=== PATIENT | female | born 1940 | race Caucasian/White ===

== ENCOUNTER 2017-03-31 15:48 | Inpatient (IN) | payer OTHER, MEDICAID ==
[~2017-03-31] VITALS: Ht 160 cm; Wt 68.0 kg
[~2017-03-31 15:48] MED LIST: CA/D1TAB7 PO; CLON1TAB4 PO; ESCI20TA PO; EZET10TA PO; FERR-57 PO; GLIM2TAB2 PO; HYDR-4100 PO; LEVO25TA7 PO; LOSA100T11 PO; MEGE400O4 PO; METO-290 PO; OMEP20CA10 PO; SIMV10TA2 PO; [UNRECOGNIZED DRUG - CODE] PO
[2017-03-31 15:50] VITALS: BP_SYST 156
[2017-03-31] MEDS ORDERED: MORPHINE 4 MG/ML INJ. SYRINGE IM ONE (16:30)
[2017-03-31] MEDS ORDERED: ONDANSETRON HCL 4 MG/2 ML VIAL IVP ONE (16:30)
[2017-03-31 16:37] LABS: BASOPHILS % (AUTO) 0.1 % (0.0-2.0); EOSINOPHILS % (AUTO) 0.5 % (0.0-4.0); HEMOGLOBIN 10.6 g/dL (12.0-16.0); LYMPHOCYTES # (AUTO) 0.7 K/uL (1.0-5.5); MEAN CORPUSCULAR HEMOGLOBIN 29 pg (27-31); MEAN CORPUSCULAR HGB CONC 33 % (32-36); MEAN CORPUSCULAR VOLUME 88 fL (79.0-98.0); MONOCYTES # (AUTO) 0.4 K/uL (0.0-1.0); MONOCYTES % (AUTO) 4.6 % (1.7-9.3); NEUTROPHILS % (AUTO) 85.8 % (40.0-70.0); PLATELET COUNT (AUTO) 238 K/uL (130-430); RED BLOOD CELL COUNT(AUTO) 3.63 MIL/uL (4.2-6.2); WHITE BLOOD COUNT (AUTO) 8.1 K/uL (4.8-10.8)
[2017-03-31 16:44] LABS: BILIRUBIN,URINE NEGATIVE (NEGATIVE); BLOOD, URINE 2+ (NEGATIVE); CLARITY/URINE SL HAZY (CLEAR); COLOR,URINE YELLOW (YELLOW); GLUCOSE,URINE NEGATIVE (NEGATIVE); KETONES,URINE NEGATIVE (NEGATIVE); LEUKOCYTE ESTERASE ,URINE TRACE (NEGATIVE); NITRITE, URINE NEGATIVE (NEGATIVE); PROTEIN URINE NEGATIVE (NEGATIVE); UROBILINOGEN,URINE 0.2 (0.2-1.0)
[2017-03-31] MEDS ORDERED: MORPHINE 4 MG/ML INJ. SYRINGE IVP ONE (16:45)
[2017-03-31 16:47] LABS: ANION GAP 4 (5-15); CALCIUM 8.7 mg/dL (8.4-11.0); CHLORIDE 95 mmol/L (98-107); CREATININE 0.91 mg/dL (0.55-1.30); GLUCOSE 214 mg/dL (70-99); POTASSIUM 4.5 mmol/L (3.5-5.1); SODIUM SERUM 127 mmol/L (136-145); UREA NITROGEN, BLOOD 16 mg/dL (8-21)
[2017-03-31 16:51] LABS: ALANINE AMINOTRANSFERASE 6 U/L (12-78); ASPARTATE AMINOTRANSFERASE 18 U/L (10-37); LIPASE 130 U/L (73-393); TOTAL BILIRUBIN 0.3 mg/dL (0.0-1.0); TOTAL PROTEIN, SERUM 7.5 g/dL (6.4-8.3)
[2017-03-31 16:55] LABS: BACTERIA,URINE MANY /HPF (None Seen); MUCUS,URINE None Seen /LPF (None Seen)
[2017-03-31] MEDS ORDERED: cefTRIAXone 1 GM IVPB PREMIX 50 ML IV ONE ×2 (17:15→21:30)
[2017-03-31] MEDS ORDERED: HYDROmorphone 1 MG INJ. 1 MG/ML AMPUL IVP ONE (17:30)
[2017-03-31] MEDS ORDERED: ONDANSETRON 4 MG ODT TAB PO ONE (18:30)
[2017-03-31] MEDS ORDERED: cloNIDine HCL 0.1 MG TABLET PO ONE (20:15)
[2017-03-31] MEDS ORDERED: NS 500 ML IV ONE (21:30)
[2017-03-31] MEDS ORDERED: MAGNESIUM CITRATE 300 ML ORAL SOLUTION PO ONE (21:30)
[2017-03-31] MEDS ORDERED: INSU100I24 SQ (22:08)
[2017-03-31 22:17] VITALS: BP_SYST 127
[2017-03-31] MEDS: KCL 20 mEq in D5/0.45NS 1000mL 1,000 ML IV SCH (23:26)
[2017-04-01] VITALS (7 sets, daily range): BP systolic 107–145
[2017-04-01] MEDS: HYDROcodone/ACETAMIN 10-325 MG TAB PO PRN ×4 (01:19→21:50)
[2017-04-01] MEDS ORDERED: [UNRECOGNIZED DRUG - OTHER] PO SCH (09:00)
[2017-04-01] MEDS ORDERED: GLUCOSE 15 GM GEL (in 37.5 GM TUBE) PO PRN ×2 (09:15)
[2017-04-01] MEDS ORDERED: DEXTROSE 50%-WATER 50 ML DISP.SYRIN IVP PRN ×2 (09:15)
[2017-04-01] MEDS: CEFEPIME 1 GM in D5W 50 ML IV SCH ×2 (10:41→22:19)
[2017-04-01] MEDS: CITALOPRAM HYDROBROMIDE 20 MG TABLET PO SCH (10:42)
[2017-04-01] MEDS: FERROUS SULFATE 325 MG TABLET.DR PO SCH ×2 (10:42→20:12)
[2017-04-01] MEDS: CARBIDOPA/LEVODOPA 25/100 MG TABLET PO SCH ×4 (10:42→23:18)
[2017-04-01] MEDS: LOSARTAN POTASSIUM 50 MG TABLET (COZAAR) PO SCH (10:43)
[2017-04-01] MEDS: clonazePAM 0.5 MG TABLET PO SCH ×2 (10:44→20:12)
[2017-04-01] MEDS: MEGESTROL ACETATE 400 MG/10 ML UDC PO SCH ×2 (10:44→20:12)
[2017-04-01] MEDS: OMEPRAZOLE 20 MG CAPSULE.DR (PriLOSEC) PO SCH ×2 (10:44→20:12)
[2017-04-01] MEDS: KCL 20 mEq in D5/0.45NS 1000mL 1,000 ML IV SCH ×2 (12:18→17:48)
[2017-04-01] MEDS: INSULIN REGULAR, HUMAN 100 UNITS/ML, 10 ML VIAL (novoLIN R) SUBCUT PRN ×2 (13:35→16:30)
[2017-04-01] MEDS: METOCLOPRAMIDE HCL 10 MG TABLET PO SCH ×2 (14:16→22:20)
[2017-04-01] MEDS ORDERED: ACETAMINOPHEN 500 MG TABLET PO ONE (19:15)
[2017-04-01] MEDS: EZETIMIBE 10 MG TABLET PO SCH (20:12)
[2017-04-01] MEDS: SIMVASTATIN 10 MG TABLET PO SCH (20:12)
[2017-04-01] MEDS: LUBIPROSTONE 8 MCG CAPSULE PO SCH (22:19)
[2017-04-02 03:42] VITALS: BP_SYST 156
[2017-04-02] MEDS: CARBIDOPA/LEVODOPA 25/100 MG TABLET PO SCH ×6 (03:49→22:58)
[2017-04-02] MEDS: ACETAMINOPHEN 500 MG TABLET PO PRN ×2 (04:04→10:39)
[2017-04-02] MEDS: METOCLOPRAMIDE HCL 10 MG TABLET PO SCH ×3 (06:57→21:41)
[2017-04-02] MEDS: GLIMEPIRIDE 2 MG TABLET PO SCH (06:57)
[2017-04-02] MEDS: LEVOTHYROXINE SODIUM 0.025 MG TABLET PO SCH (06:57)
[2017-04-02] MEDS: KCL 20 mEq in D5/0.45NS 1000mL 1,000 ML IV SCH (07:01)
[2017-04-02] MEDS: INSULIN REGULAR, HUMAN 100 UNITS/ML, 10 ML VIAL (novoLIN R) SUBCUT PRN ×4 (07:03→21:45)
[2017-04-02] MEDS: HYDROcodone/ACETAMIN 10-325 MG TAB PO PRN (07:10)
[2017-04-02 07:12] LABS: BASOPHILS % (AUTO) 0.3 % (0.0-2.0); EOSINOPHILS % (AUTO) 0.3 % (0.0-4.0); HEMATOCRIT 27.4 % (36-48); HEMOGLOBIN 9.1 g/dL (12.0-16.0); LYMPHOCYTES % (AUTO) 10.4 % (20.5-51.5); MEAN CORPUSCULAR HEMOGLOBIN 29 pg (27-31); MEAN CORPUSCULAR HGB CONC 33 % (32-36); MEAN CORPUSCULAR VOLUME 88 fL (79.0-98.0); MONOCYTES # (AUTO) 0.5 K/uL (0.0-1.0); MONOCYTES % (AUTO) 5.3 % (1.7-9.3); NEUTROPHILS # (AUTO) 7.7 K/uL (1.8-7.7); NEUTROPHILS % (AUTO) 83.7 % (40.0-70.0); PLATELET COUNT (AUTO) 162 K/uL (130-430); RED BLOOD CELL COUNT(AUTO) 3.11 MIL/uL (4.2-6.2); RED CELL DISTRIBUTION WIDTH 12.7 % (9.0-15.0); WHITE BLOOD COUNT (AUTO) 9.2 K/uL (4.8-10.8)
[2017-04-02 07:26] LABS: ANION GAP 5 (5-15); CALCIUM 8.8 mg/dL (8.4-11.0); CHLORIDE 92 mmol/L (98-107); GLUCOSE 221 mg/dL (70-99); SODIUM SERUM 123 mmol/L (136-145); UREA NITROGEN, BLOOD 16 mg/dL (8-21)
[2017-04-02 08:00] VITALS: BP_SYST 137
[2017-04-02 08:10] LABS: IRON (SERUM) 13 mcg/dL (37-145); TOTAL IRON BIND. CAPACITY 119 ug/dL (250-450)
[2017-04-02] MEDS: CEFEPIME 1 GM in D5W 50 ML IV SCH ×2 (08:29→21:41)
[2017-04-02] MEDS: FERROUS SULFATE 325 MG TABLET.DR PO SCH ×2 (08:29→21:42)
[2017-04-02] MEDS: MEGESTROL ACETATE 400 MG/10 ML UDC PO SCH ×2 (08:29→21:44)
[2017-04-02] MEDS: LOSARTAN POTASSIUM 50 MG TABLET (COZAAR) PO SCH (08:29)
[2017-04-02] MEDS: LUBIPROSTONE 8 MCG CAPSULE PO SCH ×2 (08:29→21:43)
[2017-04-02] MEDS: OMEPRAZOLE 20 MG CAPSULE.DR (PriLOSEC) PO SCH ×2 (08:29→21:42)
[2017-04-02] MEDS: CITALOPRAM HYDROBROMIDE 20 MG TABLET PO SCH (08:29)
[2017-04-02] MEDS: clonazePAM 0.5 MG TABLET PO SCH ×2 (08:29→21:42)
[2017-04-02] MEDS ORDERED: CALCIUM 600/VIT D PO SCH (09:00)
[2017-04-02] MEDS: CALCIUM 600/VIT D PO SCH ×2 (10:38→21:42)
[2017-04-02 12:07] VITALS: BP_SYST 142
[2017-04-02] MEDS: FIORCET PO PRN ×2 (16:16→21:44)
[2017-04-02 16:23] VITALS: BP_SYST 146
[2017-04-02] MEDS: NACL 0.9% 1,000 ML IV SCH (18:07)
[2017-04-02 20:00] VITALS: BP_SYST 152
[2017-04-02] MEDS: EZETIMIBE 10 MG TABLET PO SCH (21:41)
[2017-04-02] MEDS: SIMVASTATIN 10 MG TABLET PO SCH (21:42)
[2017-04-02 23:56] VITALS: BP_SYST 144
[2017-04-03] VITALS (7 sets, daily range): BP systolic 139–165
[2017-04-03] MEDS: CARBIDOPA/LEVODOPA 25/100 MG TABLET PO SCH ×6 (03:04→23:11)
[2017-04-03] MEDS: HYDROcodone/ACETAMIN 10-325 MG TAB PO PRN ×4 (03:05→23:15)
[2017-04-03] MEDS: METOCLOPRAMIDE HCL 10 MG TABLET PO SCH ×3 (05:55→21:45)
[2017-04-03] MEDS: NACL 0.9% 1,000 ML IV SCH ×2 (05:55→18:50)
[2017-04-03] MEDS: GLIMEPIRIDE 2 MG TABLET PO SCH (06:48)
[2017-04-03] MEDS: LEVOTHYROXINE SODIUM 0.025 MG TABLET PO SCH (06:48)
[2017-04-03 08:09] LABS: BASOPHILS % (AUTO) 0.2 % (0.0-2.0); EOSINOPHILS % (AUTO) 0.2 % (0.0-4.0); HEMATOCRIT 26.6 % (36-48); LYMPHOCYTES % (AUTO) 11.9 % (20.5-51.5); MEAN CORPUSCULAR HEMOGLOBIN 29 pg (27-31); MEAN CORPUSCULAR HGB CONC 34 % (32-36); MEAN CORPUSCULAR VOLUME 85 fL (79.0-98.0); MONOCYTES # (AUTO) 0.7 K/uL (0.0-1.0); MONOCYTES % (AUTO) 8.9 % (1.7-9.3); NEUTROPHILS # (AUTO) 6.3 K/uL (1.8-7.7); NEUTROPHILS % (AUTO) 78.8 % (40.0-70.0); PLATELET COUNT (AUTO) 158 K/uL (130-430); RED BLOOD CELL COUNT(AUTO) 3.12 MIL/uL (4.2-6.2); RED CELL DISTRIBUTION WIDTH 13.2 % (9.0-15.0)
[2017-04-03 08:17] LABS: ANION GAP 4 (5-15); CALCIUM 8.7 mg/dL (8.4-11.0); CHLORIDE 99 mmol/L (98-107); CREATININE 0.76 mg/dL (0.55-1.30); GLUCOSE 105 mg/dL (70-99); POTASSIUM 4.3 mmol/L (3.5-5.1); SODIUM SERUM 130 mmol/L (136-145); UREA NITROGEN, BLOOD 9 mg/dL (8-21)
[2017-04-03] MEDS: CALCIUM 600/VIT D PO SCH ×2 (09:57→20:29)
[2017-04-03] MEDS: MEGESTROL ACETATE 400 MG/10 ML UDC PO SCH ×2 (09:57→20:30)
[2017-04-03] MEDS: FIORCET PO PRN ×3 (09:58→21:45)
[2017-04-03] MEDS: CITALOPRAM HYDROBROMIDE 20 MG TABLET PO SCH (09:58)
[2017-04-03] MEDS: LOSARTAN POTASSIUM 50 MG TABLET (COZAAR) PO SCH (09:58)
[2017-04-03] MEDS: clonazePAM 0.5 MG TABLET PO SCH ×2 (09:59→20:29)
[2017-04-03] MEDS: FERROUS SULFATE 325 MG TABLET.DR PO SCH ×2 (09:59→20:30)
[2017-04-03] MEDS: OMEPRAZOLE 20 MG CAPSULE.DR (PriLOSEC) PO SCH ×2 (09:59→20:29)
[2017-04-03] MEDS: CEFEPIME 1 GM in D5W 50 ML IV SCH ×2 (10:00→20:31)
[2017-04-03] MEDS: LUBIPROSTONE 8 MCG CAPSULE PO SCH ×2 (10:52→20:30)
[2017-04-03 11:14] LABS: FOLATE (FOLIC ACID) 9.8 ng/mL (>3.0)
[2017-04-03] MEDS: INSULIN REGULAR, HUMAN 100 UNITS/ML, 10 ML VIAL (novoLIN R) SUBCUT PRN ×3 (12:23→20:34)
[2017-04-03] MEDS: SIMVASTATIN 10 MG TABLET PO SCH (20:30)
[2017-04-03] MEDS: EZETIMIBE 10 MG TABLET PO SCH (20:30)
[2017-04-04] MEDS: CARBIDOPA/LEVODOPA 25/100 MG TABLET PO SCH ×6 (03:00→22:27)
[2017-04-04 04:09] VITALS: BP_SYST 152
[2017-04-04] MEDS: HYDROcodone/ACETAMIN 10-325 MG TAB PO PRN ×3 (04:29→19:05)
[2017-04-04] MEDS: GLIMEPIRIDE 2 MG TABLET PO SCH (06:05)
[2017-04-04] MEDS: LEVOTHYROXINE SODIUM 0.025 MG TABLET PO SCH (06:05)
[2017-04-04] MEDS: METOCLOPRAMIDE HCL 10 MG TABLET PO SCH ×3 (06:05→21:50)
[2017-04-04 07:27] LABS: BASOPHILS % (AUTO) 0.3 % (0.0-2.0); EOSINOPHILS % (AUTO) 0.5 % (0.0-4.0); HEMATOCRIT 26.1 % (36-48); HEMOGLOBIN 8.7 g/dL (12.0-16.0); LYMPHOCYTES # (AUTO) 1.2 K/uL (1.0-5.5); LYMPHOCYTES % (AUTO) 13.4 % (20.5-51.5); MEAN CORPUSCULAR HEMOGLOBIN 29 pg (27-31); MEAN CORPUSCULAR HGB CONC 33 % (32-36); MEAN CORPUSCULAR VOLUME 87 fL (79.0-98.0); MONOCYTES # (AUTO) 0.7 K/uL (0.0-1.0); MONOCYTES % (AUTO) 8.5 % (1.7-9.3); NEUTROPHILS # (AUTO) 6.7 K/uL (1.8-7.7); NEUTROPHILS % (AUTO) 77.3 % (40.0-70.0); PLATELET COUNT (AUTO) 174 K/uL (130-430); RED CELL DISTRIBUTION WIDTH 13.6 % (9.0-15.0); WHITE BLOOD COUNT (AUTO) 8.6 K/uL (4.8-10.8)
[2017-04-04 07:51] LABS: ALANINE AMINOTRANSFERASE 19 U/L (12-78); ALBUMIN 2.3 g/dL (3.4-4.8); ANION GAP 5 (5-15); ASPARTATE AMINOTRANSFERASE 49 U/L (10-37); CALCIUM 8.5 mg/dL (8.4-11.0); CHLORIDE 101 mmol/L (98-107); CREATININE 0.75 mg/dL (0.55-1.30); GLUCOSE 124 mg/dL (70-99); POTASSIUM 4.3 mmol/L (3.5-5.1); SODIUM SERUM 131 mmol/L (136-145); TOTAL BILIRUBIN 0.2 mg/dL (0.0-1.0); TOTAL PROTEIN, SERUM 6.6 g/dL (6.4-8.3); UREA NITROGEN, BLOOD 8 mg/dL (8-21)
[2017-04-04 08:00] VITALS: BP_SYST 158
[2017-04-04] MEDS: LOSARTAN POTASSIUM 50 MG TABLET (COZAAR) PO SCH (08:22)
[2017-04-04] MEDS: NACL 0.9% 1,000 ML IV SCH ×2 (08:22→20:59)
[2017-04-04] MEDS: LUBIPROSTONE 8 MCG CAPSULE PO SCH ×2 (09:53→20:51)
[2017-04-04] MEDS: MEGESTROL ACETATE 400 MG/10 ML UDC PO SCH ×2 (09:53→20:55)
[2017-04-04] MEDS: CALCIUM 600/VIT D PO SCH ×2 (09:53→20:52)
[2017-04-04] MEDS: CEFEPIME 1 GM in D5W 50 ML IV SCH ×2 (09:53→21:10)
[2017-04-04] MEDS: CITALOPRAM HYDROBROMIDE 20 MG TABLET PO SCH (09:54)
[2017-04-04] MEDS: OMEPRAZOLE 20 MG CAPSULE.DR (PriLOSEC) PO SCH ×2 (09:54→20:53)
[2017-04-04] MEDS: clonazePAM 0.5 MG TABLET PO SCH ×2 (09:54→20:52)
[2017-04-04] MEDS: FERROUS SULFATE 325 MG TABLET.DR PO SCH ×2 (09:54→20:52)
[2017-04-04] MEDS: FIORCET PO PRN ×3 (11:59→22:41)
[2017-04-04 12:01] VITALS: BP_SYST 169
[2017-04-04] MEDS: INSULIN REGULAR, HUMAN 100 UNITS/ML, 10 ML VIAL (novoLIN R) SUBCUT PRN ×2 (12:05→21:55)
[2017-04-04] MEDS ORDERED: MILK OF MAGNESIA 30 ML UDC PO PRN (14:00)
[2017-04-04 14:01] VITALS: BP_SYST 120; BP_SYST 156
[2017-04-04 20:00] VITALS: BP_SYST 190
[2017-04-04] MEDS: DOCUSATE SODIUM 100 MG CAPSULE PO SCH (20:52)
[2017-04-04] MEDS: EZETIMIBE 10 MG TABLET PO SCH (20:53)
[2017-04-04] MEDS: SIMVASTATIN 10 MG TABLET PO SCH (20:53)
[2017-04-05] VITALS (9 sets, daily range): BP systolic 124–189
[2017-04-05] MEDS: NACL 0.9% 1,000 ML IV SCH (00:11)
[2017-04-05] MEDS: CARBIDOPA/LEVODOPA 25/100 MG TABLET PO SCH ×5 (03:24→18:27)
[2017-04-05] MEDS: HYDROcodone/ACETAMIN 10-325 MG TAB PO PRN ×5 (03:29→20:48)
[2017-04-05] MEDS: METOCLOPRAMIDE HCL 10 MG TABLET PO SCH ×2 (06:15→13:22)
[2017-04-05] MEDS: GLIMEPIRIDE 2 MG TABLET PO SCH (06:16)
[2017-04-05] MEDS: LEVOTHYROXINE SODIUM 0.025 MG TABLET PO SCH (06:21)
[2017-04-05] MEDS: CEFEPIME 1 GM in D5W 50 ML IV SCH (08:19)
[2017-04-05] MEDS: MEGESTROL ACETATE 400 MG/10 ML UDC PO SCH ×2 (08:19→20:24)
[2017-04-05] MEDS: CALCIUM 600/VIT D PO SCH ×2 (08:20→20:24)
[2017-04-05] MEDS: DOCUSATE SODIUM 100 MG CAPSULE PO SCH ×2 (08:20→20:25)
[2017-04-05] MEDS: LOSARTAN POTASSIUM 50 MG TABLET (COZAAR) PO SCH (08:20)
[2017-04-05] MEDS: clonazePAM 0.5 MG TABLET PO SCH ×2 (08:21→20:25)
[2017-04-05] MEDS: FERROUS SULFATE 325 MG TABLET.DR PO SCH ×2 (08:21→20:25)
[2017-04-05] MEDS: CITALOPRAM HYDROBROMIDE 20 MG TABLET PO SCH (08:21)
[2017-04-05] MEDS: OMEPRAZOLE 20 MG CAPSULE.DR (PriLOSEC) PO SCH ×2 (08:21→20:25)
[2017-04-05] MEDS: LUBIPROSTONE 8 MCG CAPSULE PO SCH (08:36)
[2017-04-05] MEDS: FIORCET PO PRN ×3 (10:02→18:31)
[2017-04-05] MEDS: INSULIN REGULAR, HUMAN 100 UNITS/ML, 10 ML VIAL (novoLIN R) SUBCUT PRN ×2 (11:06→17:18)
[2017-04-05] MEDS ORDERED: NA PHOS,M-B/NA PHOS,DI-BA 118 ML (FLEET ENEMA) RC ONE (18:00)
[2017-04-05] MEDS: SIMVASTATIN 10 MG TABLET PO SCH (20:25)
[2017-04-05] MEDS: EZETIMIBE 10 MG TABLET PO SCH (20:25)
[2017-04-05] MEDS ORDERED: cloNIDine HCL 0.1 MG TABLET PO ONE (21:00)
== END 2017-04-05 21:30 | disposition home health service (06) | DRG 689 ==
LOC: SED 15:48 → SMU 22:00
PROVIDERS: ADMIT Family Medicine; ATTEND Family Medicine
DX: N39.0 Urinary tract infection, site not specified (principal); E43 Unspecified severe protein-calorie malnutrition; E87.1 Hypo-osmolality and hyponatremia; D64.9 Anemia, unspecified; G20 Parkinson's disease; E11.9 Type 2 diabetes mellitus without complications; B96.20 Unspecified Escherichia coli [E. coli] as the cause of diseases classified elsewhere; I10 Essential (primary) hypertension; M54.9 Dorsalgia, unspecified; G89.29 Other chronic pain; Z88.6 Allergy status to analgesic agent; Z68.26 Body mass index [BMI] 26.0-26.9, adult
CPT/HCPCS: 36415; 71010; 76700-TC; 80048; 80053; 81000-TC; 82607; 82728; 82746; 82962; 83540-TC; 83550-TC; 83690-TC; 84484; 85025; 87086; 87186-TC; 93005; 96365; 96375; 97110-GP; 97116-GP; 97530-GP; 99285; J0692; J0696; J1170; J1815; J2270; J2405; J7030; J7040; J7060; J8597; Q0162

== ENCOUNTER 2017-10-01 13:52 | Emergency (ER) | payer OTHER, MEDICAID ==
[~2017-10-01] VITALS: Ht 167.6 cm; Wt 68.0 kg
[~2017-10-01 13:52] MED LIST changes: +INSU100I24 SQ
[2017-10-01 13:58] VITALS: BP_SYST 163
[2017-10-01 15:33] VITALS: BP_SYST 150
== END 2017-10-01 15:33 | disposition home or self-care (01) ==
LOC: SED 13:52
DX: J06.9 Acute upper respiratory infection, unspecified (principal); E11.9 Type 2 diabetes mellitus without complications; I10 Essential (primary) hypertension; G20 Parkinson's disease; Z88.5 Allergy status to narcotic agent; Z79.899 Other long term (current) drug therapy
CPT/HCPCS: 82962; 99283

== ENCOUNTER 2018-11-28 12:35 | Inpatient (IN) | payer OTHER, MEDICAID ==
[~2018-11-28] VITALS: Ht 160 cm; Wt 71.4 kg
[~2018-11-28 12:35] MED LIST changes: +BACL10TA PO; -CA/D1TAB7 PO; +CARB-61 PO; +CLON1TAB12 PO; -CLON1TAB4 PO; -ESCI20TA PO; -FERR-57 PO; -GLIM2TAB2 PO; -HYDR-4100 PO; +HYDR-4272 PO; -INSU100I24 SQ; -LOSA100T11 PO; +LOSA100T3 PO; -MEGE400O4 PO; -METO-290 PO; -[UNRECOGNIZED DRUG - CODE] PO; +novolog flex pen SUBCUT
[2018-11-28 12:49] VITALS: BP_SYST 150
[2018-11-28 13:56] LABS: BASOPHILS % (AUTO) 0.7 % (0.0-2.0); EOSINOPHILS % (AUTO) 2.4 % (0.0-4.0); HEMATOCRIT 36.1 % (36-48); LYMPHOCYTES % (AUTO) 27.8 % (20.5-51.5); MEAN CORPUSCULAR HEMOGLOBIN 30 pg (27-31); MEAN CORPUSCULAR HGB CONC 33 % (32-36); MEAN CORPUSCULAR VOLUME 90 fL (79.0-98.0); MONOCYTES % (AUTO) 8.7 % (1.7-9.3); NEUTROPHILS % (AUTO) 60.4 % (40.0-70.0); PLATELET COUNT (AUTO) 209 K/uL (130-430); RED BLOOD CELL COUNT(AUTO) 4.02 MIL/uL (4.2-6.2); RED CELL DISTRIBUTION WIDTH 14.1 % (9.0-15.0); WHITE BLOOD COUNT (AUTO) 6.7 K/uL (4.8-10.8)
[2018-11-28 13:57] LABS: EOSINOPHILS # (AUTO) 0.2 K/uL (0.0-0.4); LYMPHOCYTES # (AUTO) 1.9 K/uL (1.0-5.5); MONOCYTES # (AUTO) 0.6 K/uL (0.0-1.0); NEUTROPHILS # (AUTO) 4.1 K/uL (1.8-7.7)
[2018-11-28 14:04] LABS: ANION GAP 7 (5-15); CALCIUM 9.4 mg/dL (8.4-11.0); CHLORIDE 97 mmol/L (98-107); CREATININE 0.85 mg/dL (0.55-1.30); GLUCOSE 128 mg/dL (70-99); POTASSIUM 4.7 mmol/L (3.5-5.1); SODIUM SERUM 131 mmol/L (136-145); UREA NITROGEN, BLOOD 18 mg/dL (8-21)
[2018-11-28 14:11] LABS: ALANINE AMINOTRANSFERASE 18 U/L (12-78); ALBUMIN 3.4 g/dL (3.4-4.8); ASPARTATE AMINOTRANSFERASE 22 U/L (10-37); TOTAL BILIRUBIN 0.3 mg/dL (0.0-1.0)
[2018-11-28] MEDS ORDERED: MINERAL OIL 133 ML ENEMA RC ONE (16:30)
[2018-11-28] MEDS ORDERED: MAGNESIUM CITRATE 300 ML ORAL SOLUTION PO ONE (17:45)
[2018-11-28] MEDS ORDERED: MAGNESIUM SULFATE 50 ML IV PRN ×2 (19:30)
[2018-11-28] MEDS ORDERED: MORPHINE 4 MG/ML INJ. SYRINGE IVP PRN ×2 (19:30)
[2018-11-28] MEDS ORDERED: DOCUSATE SODIUM 100 MG CAPSULE PO PRN ×2 (19:30)
[2018-11-28] MEDS ORDERED: ZOLPIDEM TARTRATE 5 MG TABLET PO PRN ×2 (19:30)
[2018-11-28] MEDS ORDERED: POTASSIUM CHLORIDE 20 MEQ TAB.PRT.SR PO PRN ×2 (19:30)
[2018-11-28] MEDS ORDERED: ONDANSETRON HCL 4 MG/2 ML VIAL IVP PRN ×2 (19:30)
[2018-11-28] MEDS ORDERED: LORazepam 2 MG/ML VIAL IVP PRN ×2 (19:30)
[2018-11-28] MEDS ORDERED: MUPIROCIN 2% TOPICAL OINTMENT 22 GM NS PRN ×2 (19:30)
[2018-11-28] MEDS ORDERED: ACETAMINOPHEN 325 MG TABLET PO PRN (19:30)
[2018-11-28] MEDS ORDERED: MORPHINE 2 MG/ML INJ. SYRINGE IVP PRN ×2 (19:30)
[2018-11-28] MEDS ORDERED: SIMVASTATIN 10 MG TABLET PO SCH (21:00)
[2018-11-28] MEDS ORDERED: HEPARIN SODIUM,PORCINE 5000 UNITS/ML VIAL SUBCUT SCH (21:00)
[2018-11-28] MEDS ORDERED: EZETIMIBE 10 MG TABLET PO SCH (21:00)
[2018-11-28] MEDS ORDERED: BACLOFEN 10 MG TABLET PO SCH (21:00)
[2018-11-28 21:13] VITALS: BP_SYST 157
[2018-11-28] MEDS: ACETAMINOPHEN 325 MG TABLET PO PRN (21:55)
[2018-11-28] MEDS ORDERED: INSULIN ASPART 100 UNITS/ML, 10 ML VIAL (NovoLOG) SUBCUT PRN (22:15)
[2018-11-28] MEDS: clonazePAM 0.5 MG TABLET PO SCH (22:48)
[2018-11-28] MEDS: NACL 0.9% 1,000 ML IV SCH (22:50)
[2018-11-28] MEDS: HEPARIN SODIUM,PORCINE 5000 UNITS/ML VIAL SUBCUT SCH (22:52)
[2018-11-28] MEDS: CARBIDOPA/LEVODOPA 25/100 MG TABLET PO SCH (23:22)
[2018-11-29 00:32] VITALS: BP_SYST 198
[2018-11-29] MEDS ORDERED: cloNIDine HCL 0.1 MG TABLET PO PRN (01:15)
[2018-11-29] MEDS ORDERED: INSULIN REGULAR, HUMAN 100 UNITS/ML, 10 ML VIAL (novoLIN R) SUBCUT PRN (06:45)
[2018-11-29] MEDS: CARBIDOPA/LEVODOPA 25/100 MG TABLET PO SCH ×2 (06:52→11:29)
[2018-11-29] MEDS ORDERED: LEVOTHYROXINE SODIUM 0.025 MG TABLET PO SCH (07:00)
[2018-11-29 07:05] LABS: ANION GAP 6 (5-15); CALCIUM 9.4 mg/dL (8.4-11.0); CHLORIDE 101 mmol/L (98-107); CREATININE 0.83 mg/dL (0.55-1.30); GLUCOSE 144 mg/dL (70-99); POTASSIUM 4.2 mmol/L (3.5-5.1); SODIUM SERUM 135 mmol/L (136-145); UREA NITROGEN, BLOOD 15 mg/dL (8-21)
[2018-11-29] MEDS ORDERED: D5W 1,000 ML IV PRN (07:15)
[2018-11-29] MEDS ORDERED: GLUCOSE 15 GM GEL (in 37.5 GM TUBE) PO PRN (07:15)
[2018-11-29] MEDS ORDERED: DEXTROSE 50%-WATER 50 ML DISP.SYRIN IVP PRN (07:15)
[2018-11-29 08:01] VITALS: BP_SYST 145
[2018-11-29] MEDS: clonazePAM 0.5 MG TABLET PO SCH (08:30)
[2018-11-29] MEDS: HEPARIN SODIUM,PORCINE 5000 UNITS/ML VIAL SUBCUT SCH (08:33)
[2018-11-29 08:44] LABS: BASOPHILS % (AUTO) 0.5 % (0.0-2.0); HEMATOCRIT 34.2 % (36-48); HEMOGLOBIN 11.7 g/dL (12.0-16.0); LYMPHOCYTES % (AUTO) 21.6 % (20.5-51.5); MEAN CORPUSCULAR HEMOGLOBIN 31 pg (27-31); MEAN CORPUSCULAR HGB CONC 34 % (32-36); MEAN CORPUSCULAR VOLUME 89 fL (79.0-98.0); MONOCYTES % (AUTO) 7.4 % (1.7-9.3); NEUTROPHILS % (AUTO) 68.5 % (40.0-70.0); PLATELET COUNT (AUTO) 223 K/uL (130-430); RED BLOOD CELL COUNT(AUTO) 3.83 MIL/uL (4.2-6.2); RED CELL DISTRIBUTION WIDTH 14.6 % (9.0-15.0); WHITE BLOOD COUNT (AUTO) 8.1 K/uL (4.8-10.8)
[2018-11-29 08:45] LABS: EOSINOPHILS # (AUTO) 0.2 K/uL (0.0-0.4); LYMPHOCYTES # (AUTO) 1.7 K/uL (1.0-5.5); MONOCYTES # (AUTO) 0.6 K/uL (0.0-1.0); NEUTROPHILS # (AUTO) 5.5 K/uL (1.8-7.7)
[2018-11-29] MEDS ORDERED: LOSARTAN POTASSIUM 50 MG TABLET (COZAAR) PO SCH (09:00)
[2018-11-29] MEDS: ACETAMINOPHEN 325 MG TABLET PO PRN (09:31)
[2018-11-29] MEDS: NACL 0.9% 1,000 ML IV SCH (11:29)
[2018-11-29] MEDS ORDERED: HYDROcodone/ACETAMIN 5-325 MG TAB (NORCO/ VICODIN) PO PRN (12:45)
[2018-11-29 13:05] VITALS: BP_SYST 133
[2018-11-29 14:52] VITALS: BP_SYST 133
[2018-11-29 16:00] VITALS: BP_SYST 165
== END 2018-11-29 15:46 | disposition home or self-care (01) | DRG 389 ==
LOC: SED 12:35 → SMU 20:44
PROVIDERS: ADMIT Family Medicine; ATTEND Family Medicine
DX: K56.41 Fecal impaction (principal); E87.1 Hypo-osmolality and hyponatremia; G89.29 Other chronic pain; M54.9 Dorsalgia, unspecified; I10 Essential (primary) hypertension; G20 Parkinson's disease; M19.90 Unspecified osteoarthritis, unspecified site; E11.9 Type 2 diabetes mellitus without complications; I25.10 Atherosclerotic heart disease of native coronary artery without angina pectoris; Z88.5 Allergy status to narcotic agent; Z79.899 Other long term (current) drug therapy
CPT/HCPCS: 36415; 74018; 80048; 80053; 82962; 83036; 83735-TC; 85025; 99285; J1644; J7030

== ENCOUNTER 2019-02-28 20:11 | Emergency (ER) | payer OTHER, MEDICAID ==
[~2019-02-28] VITALS: Ht 162.6 cm; Wt 72.6 kg
[2019-02-28 20:25] VITALS: BP_SYST 155
--- NOTE | 2019-02-28 20:31 | NUR ---
Patient triaged and placed in waiting room. VSS and patient appears in no acute distress at this time. Accompanied by daughters, awaiting available bed, and MD notified of need for MSE.
--- NOTE | 2019-02-28 21:25 | NUR ---
Patient to ER bed 07 for evaluation. Side rails up. Report given to Conchis GRAJEDA.
--- NOTE | 2019-02-28 21:30 | NUR ---
Patient brought in with family in wheelchair to [facility]. Patient complaining of pain to left foot s/p fall yesterday after stubbing toes on boxes. Pain 04/08. Denies any KO. No other complaints/injuries per patient or as noted. Will continue to monitor.
--- NOTE | 2019-02-28 21:40 | NUR ---
ER Dr. Bejarano at bedside examining patient.
--- NOTE | 2019-02-28 21:42 | NUR ---
Recieved report from Taniya. Patient is in stable contition. No s/s of distress. Will continue to monitor.
--- NOTE | 2019-02-28 22:53 | NUR ---
ortho-shoe was applied to left foot
[2019-02-28 23:10] VITALS: BP_SYST 155
--- NOTE | 2019-02-28 23:10 | NUR ---
Patient given written and verbal discharge instructions and verbalizes understanding. ER MD discussed with patient the results and treatment provided. Patient in stable condition. ID arm band removed. Patient educated on pain management and to follow up with PMD. Pain Scale 0/10. Opportunity for questions provided and answered. Medication side effect fact sheet provided.
== END 2019-02-28 23:10 | disposition home or self-care (01) ==
LOC: SED 20:11
DX: S93.602A Unspecified sprain of left foot, initial encounter (principal); G20 Parkinson's disease; E11.9 Type 2 diabetes mellitus without complications; I10 Essential (primary) hypertension; Z88.6 Allergy status to analgesic agent; Z79.899 Other long term (current) drug therapy; W22.8XXA Striking against or struck by other objects, initial encounter; Y93.89 Activity, other specified; Y92.89 Other specified places as the place of occurrence of the external cause; Y99.8 Other external cause status
CPT/HCPCS: 99283

== ENCOUNTER 2021-04-25 08:59 | Day surgery (SDC) | payer OTHER, MEDICAID, SELFPAY ==
[~2021-04-25] VITALS: Ht 167.6 cm; Wt 81.6 kg
[~2021-04-25 08:59] MED LIST changes: -BACL10TA PO; +CARB1TAB21 PO; +CLON0.5T4 PO; +DEXL60CA4 PO; +DICL100G19 TP; +DIPH50CA38 PO; +ENTA200T30 PO; +ESCI10TA PO; +EZET10TA30 PO; +GABA-529 PO; -HYDR-4272 PO; +INSU100V38 SQ; +LEVO25CA4; +LOSA50TA3 PO; -OMEP20CA10 PO; +OMEP20CA15 PO; +SSNOVOLOG SUBCUT; +TRAM50TA2 PO
[2021-04-25] MEDS ORDERED: ONDANSETRON HCL 4 MG/2 ML VIAL ONE (10:07)
[2021-04-25] MEDS: MIDAZOLAM HCL 5 MG/5 ML VIAL ONE ×3 (10:07→10:17)
[2021-04-25] MEDS: MEPERIDINE 100 MG INJ. 100 MG/ML VIAL ONE ×2 (10:07→10:09)
[2021-04-25 14:10] VITALS: BP_SYST 162
== END 2021-04-25 12:40 | disposition home or self-care (01) ==
LOC: SDS 08:59 → SMU 09:00 → SDS 12:40
PROVIDERS: ATTEND Internal Medicine Gastroenterology
DX: R19.4 Change in bowel habit (principal); K57.30 Diverticulosis of large intestine without perforation or abscess without bleeding; K64.8 Other hemorrhoids; Z79.899 Other long term (current) drug therapy
CPT/HCPCS: 36415; 45378; 82962; 87426; 99152; 99153; G0378; J2175; J2250; J2405

== ENCOUNTER 2021-07-17 12:39 | Emergency (ER) | payer OTHER, MEDICAID ==
[~2021-07-17] VITALS: Ht 160 cm; Wt 59.0 kg
[2021-07-17 12:45] VITALS: BP_SYST 135
--- NOTE | 2021-07-17 12:45 | NUR ---
Patient triaged and placed in waiting room. VSS and patient appears in no acute distress at this time. Accompanied by BODY PRESS OPERATOR, awaiting available bed, and MD notified of need for MSE.
--- NOTE | 2021-07-17 13:01 | NUR ---
PT STATES WHILE SHE WAS WALKING IN KITCHEN, BIG TOE CAUGHT UNDERNEATH FOOT. +SWELLING AND REDNESS TO RIGHT GREAT TOE
--- NOTE | 2021-07-17 14:06 | NUR ---
DR MEREDITH OUT TO WAITING ROOM FOR EVALUATION
[2021-07-17] MEDS ORDERED: IBUP-1969 PO (14:31)
--- NOTE | 2021-07-17 15:01 | NUR ---
PT FITTED FOR ORTHO SHOE WITHOUT INCIDENT.
[2021-07-17 15:16] VITALS: BP_SYST 135
--- NOTE | 2021-07-17 15:16 | NUR ---
Patient given written and verbal discharge instructions and verbalizes understanding. ER MD discussed with patient the results and treatment provided. Patient in stable condition. ID arm band removed. No Rx given. Patient educated on pain management and to follow up with PMD. Pain Scale 0/10 Opportunity for questions provided and answered. Medication side effect fact sheet provided.
== END 2021-07-17 15:16 | disposition home or self-care (01) ==
LOC: SED 12:39
DX: S92.911A Unspecified fracture of right toe(s), initial encounter for closed fracture (principal); I10 Essential (primary) hypertension; E11.9 Type 2 diabetes mellitus without complications; Z88.5 Allergy status to narcotic agent; Z88.6 Allergy status to analgesic agent; Z79.899 Other long term (current) drug therapy; W22.8XXA Striking against or struck by other objects, initial encounter; Y93.89 Activity, other specified; Y92.89 Other specified places as the place of occurrence of the external cause; Y99.8 Other external cause status
CPT/HCPCS: 99283

== ENCOUNTER 2021-11-24 10:20 | Inpatient (IN) | payer OTHER, MEDICAID, SELFPAY ==
[~2021-11-24] VITALS: Ht 162.6 cm; Wt 66.2 kg
[~2021-11-24 10:20] MED LIST changes: -CARB-61 PO; -CLON0.5T4 PO; -DICL100G19 TP; -DIPH50CA38 PO; -EZET10TA30 PO; -LEVO25CA4; -LEVO25TA7 PO; +LINA145C PO; -LOSA100T3 PO; -LOSA50TA3 PO; -OMEP20CA15 PO
[2021-11-24 10:50] VITALS: BP_SYST 151
[2021-11-24] MEDS ORDERED: ONDANSETRON 4 MG ODT TAB PO ONE (11:15)
[2021-11-24 12:11] LABS: BASOPHILS % (AUTO) 0.3 % (0.0-2.0); EOSINOPHILS % (AUTO) 0.3 % (0.0-4.0); HEMATOCRIT 35.2 % (36-48); HEMOGLOBIN 11.9 g/dL (12.0-16.0); LYMPHOCYTES # (AUTO) 1.7 K/uL (1.0-5.5); LYMPHOCYTES % (AUTO) 20.1 % (20.5-51.5); MEAN CORPUSCULAR HEMOGLOBIN 29 pg (27-31); MEAN CORPUSCULAR HGB CONC 34 % (32-36); MEAN CORPUSCULAR VOLUME 87 fL (79.0-98.0); MONOCYTES # (AUTO) 0.6 K/uL (0.0-1.0); MONOCYTES % (AUTO) 6.6 % (1.7-9.3); NEUTROPHILS # (AUTO) 6.2 K/uL (1.8-7.7); NEUTROPHILS % (AUTO) 72.7 % (40.0-70.0); PLATELET COUNT (AUTO) 242 K/uL (130-430); RED BLOOD CELL COUNT(AUTO) 4.04 MIL/uL (4.2-6.2); RED CELL DISTRIBUTION WIDTH 14.9 % (9.0-15.0); WHITE BLOOD COUNT (AUTO) 8.5 K/uL (4.8-10.8)
[2021-11-24 12:41] LABS: ANION GAP 8 (5-15); CALCIUM 9.8 mg/dL (8.4-11.0); CHLORIDE 90 mmol/L (98-107); CREATININE 0.91 mg/dL (0.55-1.30); GLUCOSE 79 mg/dL (70-99); POTASSIUM 4.5 mmol/L (3.5-5.1); SODIUM SERUM 125 mmol/L (136-145); UREA NITROGEN, BLOOD 22 mg/dL (8-21)
[2021-11-24 12:56] LABS: ALANINE AMINOTRANSFERASE 40 U/L (12-78); ALBUMIN 3.8 g/dL (3.4-4.8); AMYLASE 68 U/L (0-100); ASPARTATE AMINOTRANSFERASE 29 U/L (10-37); LACTATE DEHYDROGENASE 235 U/L (81-234); LIPASE 96 U/L (73-393); TOTAL BILIRUBIN 0.3 mg/dL (0.0-1.0)
[2021-11-24 13:42] LABS: C-REACTIVE PROTEIN QUANT < 0.2 mg/dL (0-0.5)
[2021-11-24] MEDS ORDERED: ONDANSETRON HCL 4 MG/2 ML VIAL IVP PRN (13:45)
[2021-11-24 13:57] LABS: BILIRUBIN,URINE NEGATIVE (NEGATIVE); CLARITY/URINE CLEAR (CLEAR); COLOR,URINE YELLOW (YELLOW); GLUCOSE,URINE NEGATIVE (NEGATIVE); KETONES,URINE TRACE (NEGATIVE); LEUKOCYTE ESTERASE ,URINE 1+ (NEGATIVE); NITRITE, URINE NEGATIVE (NEGATIVE); PROTEIN URINE 1+ (NEGATIVE); UROBILINOGEN,URINE 0.2 (0.2-1.0)
[2021-11-24 14:00] LABS: BLOOD, URINE TRACE (NEGATIVE)
[2021-11-24] MEDS: NACL 0.9% 1,000 ML IV SCH (14:22)
[2021-11-24 14:33] LABS: BACTERIA,URINE FEW /HPF (None Seen); MUCUS,URINE 1+ /LPF (None Seen)
[2021-11-24] MEDS ORDERED: METOCLOPRAMIDE HCL 10 MG TABLET PO PRN (19:30)
[2021-11-24] MEDS ORDERED: ENOXAPARIN SODIUM 40 MG/0.4 ML SYRINGE SUBCUT ONE (19:45)
[2021-11-24] MEDS: traMADol HCL HCL 50 MG TABLET (ULTRAM) PO PRN (20:57)
[2021-11-24 21:00] VITALS: BP_SYST 197
[2021-11-24 21:20] VITALS: BP_SYST 163
[2021-11-24] MEDS: CARBIDOPA/LEVODOPA 25/100 MG TABLET PO SCH (21:21)
[2021-11-24] MEDS: GABAPENTIN 300 MG CAPSULE PO SCH (21:21)
[2021-11-24] MEDS: EZETIMIBE 10 MG TABLET PO SCH (21:21)
[2021-11-24] MEDS: clonazePAM 0.5 MG TABLET PO SCH (21:21)
[2021-11-24] MEDS: CARVEDILOL 12.5 MG TABLET (COREG) PO SCH (21:22)
[2021-11-24] MEDS: SIMVASTATIN 10 MG TABLET PO SCH (21:30)
[2021-11-25 00:05] VITALS: BP_SYST 129
[2021-11-25] MEDS: NACL 0.9% 1,000 ML IV SCH ×2 (03:59→18:24)
[2021-11-25 07:08] LABS: ANION GAP 6 (5-15); CALCIUM 8.8 mg/dL (8.4-11.0); CHLORIDE 97 mmol/L (98-107); CREATININE 0.72 mg/dL (0.55-1.30); GLUCOSE 84 mg/dL (70-99); POTASSIUM 4.3 mmol/L (3.5-5.1); SODIUM SERUM 128 mmol/L (136-145); UREA NITROGEN, BLOOD 17 mg/dL (8-21)
[2021-11-25 07:57] LABS: BASOPHILS % (AUTO) 0.4 % (0.0-2.0); EOSINOPHILS % (AUTO) 0.7 % (0.0-4.0); HEMATOCRIT 30.1 % (36-48); HEMOGLOBIN 10.3 g/dL (12.0-16.0); LYMPHOCYTES # (AUTO) 1.8 K/uL (1.0-5.5); LYMPHOCYTES % (AUTO) 28.2 % (20.5-51.5); MEAN CORPUSCULAR HEMOGLOBIN 30 pg (27-31); MEAN CORPUSCULAR HGB CONC 34 % (32-36); MEAN CORPUSCULAR VOLUME 87 fL (79.0-98.0); MONOCYTES # (AUTO) 0.6 K/uL (0.0-1.0); MONOCYTES % (AUTO) 9.2 % (1.7-9.3); NEUTROPHILS # (AUTO) 3.8 K/uL (1.8-7.7); NEUTROPHILS % (AUTO) 61.5 % (40.0-70.0); PLATELET COUNT (AUTO) 221 K/uL (130-430); RED BLOOD CELL COUNT(AUTO) 3.45 MIL/uL (4.2-6.2); RED CELL DISTRIBUTION WIDTH 14.3 % (9.0-15.0); WHITE BLOOD COUNT (AUTO) 6.2 K/uL (4.8-10.8)
[2021-11-25 08:00] VITALS: BP_SYST 153
[2021-11-25] MEDS ORDERED: ESCITALOPRAM OXALATE 10 MG TABLET PO SCH (09:00)
[2021-11-25] MEDS ORDERED: NON-FORMULARY MEDICATION (Linaclotide (Linzess) 145 MCG) PO SCH (09:00)
[2021-11-25] MEDS: CARBIDOPA/LEVODOPA 25/100 MG TABLET PO SCH ×3 (09:17→21:30)
[2021-11-25] MEDS: GABAPENTIN 300 MG CAPSULE PO SCH ×2 (09:17→21:27)
[2021-11-25] MEDS: CITALOPRAM HYDROBROMIDE 20 MG TABLET PO SCH (09:17)
[2021-11-25] MEDS: clonazePAM 0.5 MG TABLET PO SCH ×2 (09:18→21:29)
[2021-11-25] MEDS: CARVEDILOL 12.5 MG TABLET (COREG) PO SCH ×2 (09:22→21:28)
[2021-11-25] MEDS: COMTAN 200 MG TAB PO SCH (09:38)
[2021-11-25] MEDS: ENOXAPARIN SODIUM 40 MG/0.4 ML SYRINGE SUBCUT SCH (09:40)
[2021-11-25 11:25] VITALS: BP_SYST 159
[2021-11-25] MEDS: traMADol HCL HCL 50 MG TABLET (ULTRAM) PO PRN (14:03)
[2021-11-25 15:51] VITALS: BP_SYST 133
[2021-11-25] MEDS: INSULIN REGULAR, HUMAN 100 UNITS/ML, 10 ML VIAL (humuLIN R) SUBCUT PRN (18:38)
[2021-11-25 20:30] VITALS: BP_SYST 186
[2021-11-25] MEDS: SIMVASTATIN 10 MG TABLET PO SCH (21:30)
[2021-11-25] MEDS: EZETIMIBE 10 MG TABLET PO SCH (21:30)
[2021-11-26 00:30] VITALS: BP_SYST 142
[2021-11-26] MEDS: traMADol HCL HCL 50 MG TABLET (ULTRAM) PO PRN (05:21)
[2021-11-26] MEDS: NACL 0.9% 1,000 ML IV SCH ×2 (05:45→20:44)
[2021-11-26 06:52] LABS: BASOPHILS % (AUTO) 0.7 % (0.0-2.0); EOSINOPHILS # (AUTO) 0.1 K/uL (0.0-0.4); EOSINOPHILS % (AUTO) 2.1 % (0.0-4.0); HEMATOCRIT 31.3 % (36-48); HEMOGLOBIN 10.7 g/dL (12.0-16.0); LYMPHOCYTES # (AUTO) 1.7 K/uL (1.0-5.5); LYMPHOCYTES % (AUTO) 29.9 % (20.5-51.5); MEAN CORPUSCULAR HEMOGLOBIN 30 pg (27-31); MEAN CORPUSCULAR HGB CONC 34 % (32-36); MEAN CORPUSCULAR VOLUME 88 fL (79.0-98.0); MONOCYTES # (AUTO) 0.6 K/uL (0.0-1.0); MONOCYTES % (AUTO) 10.4 % (1.7-9.3); NEUTROPHILS # (AUTO) 3.2 K/uL (1.8-7.7); NEUTROPHILS % (AUTO) 56.9 % (40.0-70.0); PLATELET COUNT (AUTO) 224 K/uL (130-430); RED BLOOD CELL COUNT(AUTO) 3.57 MIL/uL (4.2-6.2); RED CELL DISTRIBUTION WIDTH 14.7 % (9.0-15.0); WHITE BLOOD COUNT (AUTO) 5.6 K/uL (4.8-10.8)
[2021-11-26 08:12] VITALS: BP_SYST 159
[2021-11-26 08:35] LABS: ANION GAP 8 (5-15); CALCIUM 8.7 mg/dL (8.4-11.0); CHLORIDE 97 mmol/L (98-107); CREATININE 0.56 mg/dL (0.55-1.30); GLUCOSE 107 mg/dL (70-99); POTASSIUM 4.5 mmol/L (3.5-5.1); SODIUM SERUM 132 mmol/L (136-145); UREA NITROGEN, BLOOD 14 mg/dL (8-21)
[2021-11-26] MEDS: CARVEDILOL 12.5 MG TABLET (COREG) PO SCH ×2 (09:14→20:46)
[2021-11-26] MEDS: CARBIDOPA/LEVODOPA 25/100 MG TABLET PO SCH ×3 (09:14→20:45)
[2021-11-26] MEDS: clonazePAM 0.5 MG TABLET PO SCH ×2 (09:15→20:45)
[2021-11-26] MEDS: GABAPENTIN 300 MG CAPSULE PO SCH ×2 (09:15→20:45)
[2021-11-26] MEDS: CITALOPRAM HYDROBROMIDE 20 MG TABLET PO SCH (09:15)
[2021-11-26] MEDS: ENOXAPARIN SODIUM 40 MG/0.4 ML SYRINGE SUBCUT SCH (09:23)
[2021-11-26] MEDS: COMTAN 200 MG TAB PO SCH (10:50)
[2021-11-26] MEDS: INSULIN REGULAR, HUMAN 100 UNITS/ML, 10 ML VIAL (humuLIN R) SUBCUT PRN ×3 (11:07→21:00)
[2021-11-26] MEDS ORDERED: BISACODYL 10 MG/SUPPOSITORY RC PRN (11:15)
[2021-11-26] MEDS ORDERED: MILK OF MAGNESIA 30 ML UDC PO PRN (11:15)
[2021-11-26 12:23] VITALS: BP_SYST 151
[2021-11-26] MEDS: ACETAMINOPHEN 325 MG TABLET PO PRN ×2 (13:04→20:45)
[2021-11-26 16:54] VITALS: BP_SYST 146
[2021-11-26 20:36] VITALS: BP_SYST 174
[2021-11-26] MEDS: SIMVASTATIN 10 MG TABLET PO SCH (20:44)
[2021-11-26] MEDS: EZETIMIBE 10 MG TABLET PO SCH (20:45)
[2021-11-27 05:05] VITALS: BP_SYST 139
[2021-11-27] MEDS: NACL 0.9% 1,000 ML IV SCH (05:24)
[2021-11-27 08:00] VITALS: BP_SYST 164
[2021-11-27] MEDS ORDERED: LOSARTAN POTASSIUM 50 MG TABLET (COZAAR) PO SCH (09:00)
[2021-11-27] MEDS ORDERED: LUBIPROSTONE 24 MCG CAPSULE PO SCH (09:00)
[2021-11-27] MEDS: GABAPENTIN 300 MG CAPSULE PO SCH (09:09)
[2021-11-27] MEDS: COMTAN 200 MG TAB PO SCH (09:10)
[2021-11-27] MEDS: clonazePAM 0.5 MG TABLET PO SCH (09:10)
[2021-11-27] MEDS: CARBIDOPA/LEVODOPA 25/100 MG TABLET PO SCH ×2 (09:11→15:00)
[2021-11-27] MEDS: ACETAMINOPHEN 325 MG TABLET PO PRN (09:11)
[2021-11-27] MEDS: CITALOPRAM HYDROBROMIDE 20 MG TABLET PO SCH (09:11)
[2021-11-27] MEDS: CARVEDILOL 12.5 MG TABLET (COREG) PO SCH (09:12)
[2021-11-27] MEDS: ENOXAPARIN SODIUM 40 MG/0.4 ML SYRINGE SUBCUT SCH (09:13)
[2021-11-27 12:00] VITALS: BP_SYST 142
[2021-11-27] MEDS: INSULIN REGULAR, HUMAN 100 UNITS/ML, 10 ML VIAL (humuLIN R) SUBCUT PRN ×2 (12:54→17:32)
[2021-11-27 16:00] VITALS: BP_SYST 145
[2021-11-27 17:59] VITALS: BP_SYST 145
== END 2021-11-27 18:30 | DRG 392 ==
LOC: SED 10:20 → STU 13:38 → SMU 11-26 19:32
PROVIDERS: ADMIT Family Medicine; ATTEND Family Medicine
DX: K31.9 Disease of stomach and duodenum, unspecified (principal); E87.1 Hypo-osmolality and hyponatremia; G20 Parkinson's disease; G89.29 Other chronic pain; M54.9 Dorsalgia, unspecified; Z20.822 Contact with and (suspected) exposure to COVID-19; E11.9 Type 2 diabetes mellitus without complications; I10 Essential (primary) hypertension; Z88.5 Allergy status to narcotic agent; Z88.8 Allergy status to other drugs, medicaments and biological substances; Z79.899 Other long term (current) drug therapy
CPT/HCPCS: 36415; 76376; 80048; 80053; 81000; 82150; 82962; 83605; 83615; 83690; 83735; 84484; 85025; 86140; 87081; 97163-GP; 99285; G0378; J1650; Q0162

== ENCOUNTER 2022-02-23 10:40 | Emergency (ER) | payer OTHER, MEDICAID ==
[~2022-02-23] VITALS: Ht 160 cm; Wt 69.9 kg
[2022-02-23 10:45] VITALS: BP_SYST 152
--- NOTE | 2022-02-23 10:47 | NUR ---
ER DR. BECKETT EXAMINING PT ON FRANCISCO
--- NOTE | 2022-02-23 10:55 | NUR ---
Placed in room 2 . Placed on monitor technician, blood pressure machine and pulse oximeter. To gown for exam. Side rails up. Report given to TARAS RIVAS.
[2022-02-23] MEDS ORDERED: DIPHENHYDRAMINE INJ 50 MG/ML VIAL IVP ONE (11:00)
[2022-02-23] MEDS ORDERED: METOCLOPRAMIDE HCL 10 MG/2 ML VIAL IVP ONE (11:00)
--- NOTE | 2022-02-23 11:02 | NUR ---
Assumed care of patient URMILA (KAYLYN) from assisted living c/o N/Vx3 days and headache. Patient has a hx of diabetes and parkinson's disease. Patient is primarily spinish speaking but understands some Sinhala. Patient demonstrates no signs of acute distress, is calm and cooperative. Will continue to provide care as indicated by provider.
--- NOTE | 2022-02-23 11:05 | NUR ---
Patient transported to radiology via GURNEY, accompanied by STAFF.
--- NOTE | 2022-02-23 11:30 | NUR ---
# 20 gauge angiocath placed to R UPPER ARM. Use of asceptic technique. Opsite placed over site. Blood return noted. Blood for lab drawn from site. Flushed with 10 cc of normal saline. No evidence of infiltration noted. Patient tolerated well.
[2022-02-23 11:40] LABS: BASOPHILS % (AUTO) 0.4 % (0.0-2.0); EOSINOPHILS # (AUTO) 0.1 K/uL (0.0-0.4); EOSINOPHILS % (AUTO) 0.7 % (0.0-4.0); HEMATOCRIT 33.9 % (36-48); HEMOGLOBIN 11.6 g/dL (12.0-16.0); LYMPHOCYTES # (AUTO) 1.5 K/uL (1.0-5.5); LYMPHOCYTES % (AUTO) 19.6 % (20.5-51.5); MEAN CORPUSCULAR HEMOGLOBIN 30 pg (27-31); MEAN CORPUSCULAR HGB CONC 34 % (32-36); MEAN CORPUSCULAR VOLUME 87 fL (79.0-98.0); MONOCYTES # (AUTO) 0.5 K/uL (0.0-1.0); MONOCYTES % (AUTO) 6.4 % (1.7-9.3); NEUTROPHILS # (AUTO) 5.6 K/uL (1.8-7.7); NEUTROPHILS % (AUTO) 72.9 % (40.0-70.0); PLATELET COUNT (AUTO) 221 K/uL (130-430); RED BLOOD CELL COUNT(AUTO) 3.88 MIL/uL (4.2-6.2); WHITE BLOOD COUNT (AUTO) 7.7 K/uL (4.8-10.8)
[2022-02-23 12:09] LABS: ANION GAP 3 (5-15); CALCIUM 8.3 mg/dL (8.4-11.0); CHLORIDE 95 mmol/L (98-107); CREATININE 0.75 mg/dL (0.55-1.30); GLUCOSE 260 mg/dL (70-99); POTASSIUM 5.1 mmol/L (3.5-5.1); SODIUM SERUM 125 mmol/L (136-145); UREA NITROGEN, BLOOD 22 mg/dL (8-21)
[2022-02-23 12:13] LABS: ALANINE AMINOTRANSFERASE 4 U/L (12-78); ASPARTATE AMINOTRANSFERASE 41 U/L (10-37); C-REACTIVE PROTEIN QUANT 0.3 mg/dL (0-0.5); TOTAL BILIRUBIN 0.4 mg/dL (0.0-1.0)
[2022-02-23 12:29] LABS: ERYTHROCYTE SEDIMENTATION RATE 39 MM/HR (0-20)
[2022-02-23] MEDS ORDERED: NACL 0.9% 1,000 ML IV ONE (12:45)
--- NOTE | 2022-02-23 12:47 | NUR ---
EMILY @ [facility] [place] CALLING . TO CALL IF PT IS ADMITTED.
[2022-02-23 14:21] VITALS: BP_SYST 140
[2022-02-24] MEDS ORDERED: ESCI10TA PO (13:15)
[2022-02-24] MEDS ORDERED: GABA-533 PO (13:15)
[2022-02-24] MEDS ORDERED: ONDA4TAB55 PO (13:15)
[2022-02-24] MEDS ORDERED: SIMV10TA2 PO (13:15)
[2022-02-24] MEDS ORDERED: CARB1TAB21 PO (13:15)
[2022-02-24] MEDS ORDERED: EZET10TA30 PO (13:15)
[2022-02-24] MEDS ORDERED: LINA145C PO (13:15)
[2022-02-24] MEDS ORDERED: DEXL60CA4 PO (13:15)
[2022-02-24] MEDS ORDERED: ENTA200T30 PO (13:15)
[2022-02-24] MEDS ORDERED: LISI-209 PO (13:15)
[2022-02-24] MEDS ORDERED: TRAM50TA2 PO (13:15)
== END 2022-02-23 14:21 | disposition home or self-care (01) ==
LOC: SED 10:40
DX: R51.9 Headache, unspecified (principal); E87.1 Hypo-osmolality and hyponatremia; E11.9 Type 2 diabetes mellitus without complications; I10 Essential (primary) hypertension; Z88.5 Allergy status to narcotic agent; Z88.6 Allergy status to analgesic agent; Z79.4 Long term (current) use of insulin; Z79.899 Other long term (current) drug therapy
CPT/HCPCS: 36415; 70450; 76376; 80053; 85025; 85651; 86140; 96361; 96374; 96375; 99284; J1200; J2765; J7030

== ENCOUNTER 2022-03-21 20:20 | Emergency (ER) | payer OTHER, MEDICAID ==
[~2022-03-21] VITALS: Ht 160 cm; Wt 63.5 kg
[~2022-03-21 20:20] MED LIST changes: +EZET10TA30 PO; +GABA-533 PO; +LISI-209 PO; +ONDA4TAB55 PO
[2022-03-21 20:25] VITALS: BP_SYST 98
[2022-03-21 21:05] LABS: BASOPHILS # (AUTO) 0.1 K/uL (0.0-0.2); EOSINOPHILS # (AUTO) 0.4 K/uL (0.0-0.4); EOSINOPHILS % (AUTO) 6.7 % (0.0-4.0); HEMATOCRIT 31.4 % (36-48); HEMOGLOBIN 10.8 g/dL (12.0-16.0); LYMPHOCYTES % (AUTO) 15.9 % (20.5-51.5); MEAN CORPUSCULAR HEMOGLOBIN 30 pg (27-31); MEAN CORPUSCULAR HGB CONC 34 % (32-36); MEAN CORPUSCULAR VOLUME 88 fL (79.0-98.0); MONOCYTES # (AUTO) 0.4 K/uL (0.0-1.0); MONOCYTES % (AUTO) 6.4 % (1.7-9.3); NEUTROPHILS # (AUTO) 4.2 K/uL (1.8-7.7); PLATELET COUNT (AUTO) 179 K/uL (130-430); RED BLOOD CELL COUNT(AUTO) 3.57 MIL/uL (4.2-6.2); RED CELL DISTRIBUTION WIDTH 15.1 % (9.0-15.0); WHITE BLOOD COUNT (AUTO) 6.1 K/uL (4.8-10.8)
[2022-03-21 21:15] LABS: ANION GAP 7 (5-15); CALCIUM 8.9 mg/dL (8.4-11.0); CHLORIDE 96 mmol/L (98-107); GLUCOSE 250 mg/dL (70-99); POTASSIUM 4.7 mmol/L (3.5-5.1); SODIUM SERUM 128 mmol/L (136-145); UREA NITROGEN, BLOOD 22 mg/dL (8-21)
[2022-03-21 21:35] LABS: ALANINE AMINOTRANSFERASE 26 U/L (12-78); ALBUMIN 2.9 g/dL (3.4-4.8); ASPARTATE AMINOTRANSFERASE 39 U/L (10-37); TOTAL BILIRUBIN 0.2 mg/dL (0.0-1.0)
[2022-03-21 23:18] VITALS: BP_SYST 140
[2022-03-21 23:22] LABS: BILIRUBIN,URINE NEGATIVE (NEGATIVE); BLOOD, URINE NEGATIVE (NEGATIVE); CLARITY/URINE CLEAR (CLEAR); COLOR,URINE YELLOW (YELLOW); GLUCOSE,URINE NEGATIVE (NEGATIVE); KETONES,URINE NEGATIVE (NEGATIVE); LEUKOCYTE ESTERASE ,URINE TRACE (NEGATIVE); NITRITE, URINE NEGATIVE (NEGATIVE); PROTEIN URINE NEGATIVE (NEGATIVE); UROBILINOGEN,URINE 0.2 (0.2-1.0)
[2022-03-21 23:31] LABS: BACTERIA,URINE FEW /HPF (None Seen); RBC,URINE NONE SEEN /HPF (0-3)
== END 2022-03-21 23:19 | disposition home or self-care (01) ==
LOC: SED 20:20
DX: S83.91XA Sprain of unspecified site of right knee, initial encounter (principal); R55 Syncope and collapse; E11.9 Type 2 diabetes mellitus without complications; I10 Essential (primary) hypertension; Z88.5 Allergy status to narcotic agent; Z88.6 Allergy status to analgesic agent; Z79.4 Long term (current) use of insulin; Z79.899 Other long term (current) drug therapy; W19.XXXA Unspecified fall, initial encounter; Y93.89 Activity, other specified; Y92.89 Other specified places as the place of occurrence of the external cause; Y99.8 Other external cause status
CPT/HCPCS: 36415; 70450-TC; 71045; 73564; 76376; 80053; 81000; 82550; 83605; 84484; 85025; 93005; 99285

== ENCOUNTER 2022-05-08 19:50 | Inpatient (IN) | payer OTHER, MEDICAID ==
[~2022-05-08] VITALS: Ht 160 cm; Wt 72.6 kg
[~2022-05-08 19:50] MED LIST changes: -CARB1TAB21 PO; +CARB1TAB33 PO; +SIMV-341 PO; -SIMV10TA2 PO
[2022-05-08 20:35] VITALS: BP_SYST 150
--- NOTE | 2022-05-08 20:40 | NUR ---
Patient triaged and placed in waiting room. VS checked and patient appears in no acute distress at this time. Accompanied by family, awaiting available bed, and MD notified of need for MSE.
--- NOTE | 2022-05-08 21:36 | NUR ---
Patient wheeled to bed 7 for evaluation and treatment
--- NOTE | 2022-05-08 22:17 | NUR ---
RN TOOK ASSESSMENTS AND SPOKE WITH DAUGHTER WHICH IS THE PRIMARY CAREGIVER. PT CAME IN FOR POSSIBLE DEHYDRATION. PER DAUGHTER, PT GOT D/C FROM THE HOSPITAL 2 WEEKS AND CAME BACK AT THE ER FOR THE SAME REASON. PT AOX4, KINYARWANDA SPEAKING ONLY.
[2022-05-08 23:07] LABS: EOSINOPHILS # (AUTO) 0.2 K/uL (0.0-0.4); LYMPHOCYTES # (AUTO) 1.3 K/uL (1.0-5.5); WHITE BLOOD COUNT (AUTO) 5.9 K/uL (4.8-10.8)
[2022-05-08 23:13] LABS: BASOPHILS % (AUTO) 0.6 % (0.0-2.0); EOSINOPHILS % (AUTO) 3.8 % (0.0-4.0); HEMATOCRIT 25.3 % (36-48); LYMPHOCYTES % (AUTO) 21.2 % (20.5-51.5); MEAN CORPUSCULAR VOLUME 89 fL (79.0-98.0); MONOCYTES # (AUTO) 0.6 K/uL (0.0-1.0); MONOCYTES % (AUTO) 9.5 % (1.7-9.3); NEUTROPHILS # (AUTO) 3.8 K/uL (1.8-7.7); NEUTROPHILS % (AUTO) 64.9 % (40.0-70.0); PLATELET COUNT (AUTO) 176 K/uL (130-430); RED BLOOD CELL COUNT(AUTO) 2.85 MIL/uL (4.2-6.2); RED CELL DISTRIBUTION WIDTH 15.2 % (9.0-15.0)
[2022-05-08] MEDS ORDERED: MECLIZINE HCL 25 MG TABLET (ANITVERT) PO ONE (23:45)
[2022-05-08 23:46] LABS: INR 1.1 (0.8-1.2); PROTHROMBIN TIME 11.3 SECS (9.5-12.5)
[2022-05-08 23:54] LABS: BILIRUBIN,URINE NEGATIVE (NEGATIVE); BLOOD, URINE NEGATIVE (NEGATIVE); CLARITY/URINE CLEAR (CLEAR); COLOR,URINE YELLOW (YELLOW); GLUCOSE,URINE NEGATIVE (NEGATIVE); KETONES,URINE TRACE (NEGATIVE); LEUKOCYTE ESTERASE ,URINE 1+ (NEGATIVE); NITRITE, URINE POSITIVE (NEGATIVE); PROTEIN URINE TRACE (NEGATIVE); UROBILINOGEN,URINE 0.2 (0.2-1.0)
[2022-05-09 00:30] LABS: ANION GAP 7 (5-15); CALCIUM 8.7 mg/dL (8.4-11.0); CHLORIDE 97 mmol/L (98-107); CREATININE 1.01 mg/dL (0.55-1.30); GLUCOSE 189 mg/dL (70-99); POTASSIUM 4.9 mmol/L (3.5-5.1); UREA NITROGEN, BLOOD 15 mg/dL (8-21)
[2022-05-09 00:42] LABS: ALANINE AMINOTRANSFERASE 12 U/L (12-78); ALBUMIN 2.9 g/dL (3.4-4.8); ASPARTATE AMINOTRANSFERASE 19 U/L (10-37); FREE T4 (FREE THYROXINE) 1.1 ng/dl (0.8-1.5); THYROID STIMULATING HORMONE 6.19 uIu/mL (0.36-3.74); TOTAL BILIRUBIN 0.2 mg/dL (0.0-1.0)
[2022-05-09 00:49] LABS: BARBITURATE, URINE NEGATIVE (NEG <=200); BENZODIAZEPINE, URINE NEGATIVE (NEG <=150); CANNABINOID, URINE NEGATIVE (NEG <=50); COCAINE, URINE NEGATIVE (NEG <=150); METHAMPHETAMINES SCREEN,URINE NEGATIVE (NEG <=500); OPIATE, URINE NEGATIVE (NEG <=100); PHENCYCLIDINE SCREEN,URINE NEGATIVE (NEG <=25); UR TRICYCLIC ANTIDEPRESSANTS NEGATIVE (NEG <=300); URINE AMPHETAMINE NEGATIVE (NEG <=500); URINE METHADONE NEGATIVE (NEG <=200); URINE OXYCODONE SCREEN NEGATIVE (NEG <=100); URINE PROPOXYPHENE SCREEN NEGATIVE (NEG <=300)
[2022-05-09 01:19] LABS: BACTERIA,URINE MANY /HPF (None Seen); WBC,URINE >100 /HPF (0-3); YEAST,URINE Few /HPF (None Seen)
[2022-05-09 01:20] LABS: MUCUS,URINE 1+ /LPF (None Seen)
[2022-05-09 01:28] LABS: ALCOHOL, BLOOD < 3 mg/dL (<10)
[2022-05-09 03:53] LABS: CORRECTED WHITE BLOOD COUNT 5.9 K/uL (4.5-11.0)
[2022-05-09] MEDS ORDERED: PRO40 PO (03:56)
[2022-05-09] MEDS ORDERED: VALS80TA2 PO (03:56)
[2022-05-09] MEDS ORDERED: CARV25TA55 PO (03:56)
[2022-05-09] MEDS ORDERED: HYDR-4039 PO (03:56)
[2022-05-09] MEDS ORDERED: CLON0.5T4 PO (03:56)
[2022-05-09] MEDS ORDERED: LEVO25TA7 PO (03:56)
[2022-05-09] MEDS ORDERED: CAT1PAT TD (03:56)
[2022-05-09] MEDS ORDERED: LIP10 PO (03:56)
[2022-05-09] MEDS ORDERED: cefTRIAXone 1 GM IVPB PREMIX 50 ML IV ONE (06:15)
--- NOTE | 2022-05-09 06:21 | NUR ---
Admit bed requested Patient will be admitted to care of Admitted to Tele unit. Diagnosis Dizziness Inpatient (Yes or No) yes Observation (Yes or No) no Orientation concerns or request close to nursing station (Yes or No) no Covid Status negative On vent or bipap no Isolation requirements no Needs a sitter no From Home (Yes or if No enter name of facility) yes Requires Dialysis (Yes or No) no Med Rec Completed (Yes of No) yes
[2022-05-09] MEDS: NACL 0.9% 1,000 ML IV SCH ×2 (06:30→20:09)
--- NOTE | 2022-05-09 07:15 | NUR ---
RN GAVE REPORT TO HARLAN FOR CONTINUITY OF CARE
--- NOTE | 2022-05-09 07:30 | NUR ---
report received from yesy truong. aao x4. reps even and nonlabored. vss. pending admission
--- NOTE | 2022-05-09 11:16 | NUR ---
resting in rney.aao x4. resp even and nonlabored. vss.daughter @ bedside. pending bed
[2022-05-09] MEDS ORDERED: cloNIDine HCL 0.1 MG/24 HR PATCH.TDWK TD SCH (13:00)
[2022-05-09 13:36] LABS: BASOPHILS % (AUTO) 0.4 % (0.0-2.0); EOSINOPHILS # (AUTO) 0.2 K/uL (0.0-0.4); EOSINOPHILS % (AUTO) 3.3 % (0.0-4.0); LYMPHOCYTES # (AUTO) 1.3 K/uL (1.0-5.5); LYMPHOCYTES % (AUTO) 19.6 % (20.5-51.5); MEAN CORPUSCULAR VOLUME 89 fL (79.0-98.0); MONOCYTES # (AUTO) 0.6 K/uL (0.0-1.0); MONOCYTES % (AUTO) 8.6 % (1.7-9.3); NEUTROPHILS # (AUTO) 4.5 K/uL (1.8-7.7); NEUTROPHILS % (AUTO) 68.1 % (40.0-70.0); PLATELET COUNT (AUTO) 172 K/uL (130-430); RED BLOOD CELL COUNT(AUTO) 2.93 MIL/uL (4.2-6.2); WHITE BLOOD COUNT (AUTO) 6.6 K/uL (4.8-10.8)
[2022-05-09] MEDS: CARBIDOPA/LEVODOPA 25/100 MG TABLET PO SCH ×2 (15:00→20:08)
--- NOTE | 2022-05-09 15:31 | NUR ---
CONSULTATION PAGED REASON FOR CONSULTATION:DIZINESS WAS CONSULT CALLED?Y PERSON WHO WAS NOTIFIED:TEXT MESSAGED NATHALIE HART CONSULTING PHYSICIAN:NATHALIE HART SURVEILLANCE OPERATOR SPECIALTY:NEURO SURVEILLANCE OPERATOR PHONE NUMBER:[phone] REQUESTING PHYSICIAN:JUDAH SULLIVAN
--- NOTE | 2022-05-09 15:40 | NUR ---
pt admitted to [facility]. bedside report given to zack truong. pt care endorsed. all questions answered. all belongings taken with pt. endorsed ivf running @ 75 ml/hr
[2022-05-09 15:52] VITALS: BP_SYST 154
--- NOTE | 2022-05-09 16:00 | NUR ---
Initial notes Received pt from ER alert and oriented, speak divehi only, has mild dizziness at rest but it get worst when patient tried to to get up and ambulate. denies any chest pain or shortness of breath. IVF infusing well. Oriented to environment and call light use. safety precaution. Enc to call for help as needed.
[2022-05-09] MEDS: traMADol HCL HCL 50 MG TABLET (ULTRAM) PO PRN (17:32)
--- NOTE | 2022-05-09 18:29 | NUR ---
CLOSING NOTES EATING DINNER, HEADACHE BETTER AFTER TAKING TRAMADOL. NO DISTRESS. ENC TO CALL FOR HELP AT ALL TIMES.
[2022-05-09 20:00] VITALS: BP_SYST 151
[2022-05-09] MEDS: clonazePAM 0.5 MG TABLET PO SCH (20:07)
[2022-05-09] MEDS: EZETIMIBE 10 MG TABLET PO SCH (20:08)
[2022-05-09] MEDS: CARVEDILOL 25 MG TABLET (COREG) PO SCH (20:08)
[2022-05-09] MEDS: hydrALAZINE HCL 25 MG TABLET PO SCH (20:09)
[2022-05-09] MEDS: COMTAN 200 MG TAB PO SCH (20:11)
[2022-05-10] VITALS: BP_SYST 149
[2022-05-10] MEDS: LEVOTHYROXINE SODIUM 0.025 MG TABLET PO SCH (06:52)
--- NOTE | 2022-05-10 07:40 | NUR ---
Initial notes sleepy, deies any pain. No distress, on room air.
[2022-05-10 08:00] VITALS: BP_SYST 134
[2022-05-10 08:18] LABS: BASOPHILS % (AUTO) 0.5 % (0.0-2.0); EOSINOPHILS # (AUTO) 0.1 K/uL (0.0-0.4); EOSINOPHILS % (AUTO) 2.5 % (0.0-4.0); HEMATOCRIT 26.3 % (36-48); LYMPHOCYTES # (AUTO) 1.1 K/uL (1.0-5.5); MEAN CORPUSCULAR VOLUME 88 fL (79.0-98.0); MONOCYTES # (AUTO) 0.5 K/uL (0.0-1.0); MONOCYTES % (AUTO) 10.4 % (1.7-9.3); NEUTROPHILS # (AUTO) 3.1 K/uL (1.8-7.7); NEUTROPHILS % (AUTO) 63.6 % (40.0-70.0); PLATELET COUNT (AUTO) 182 K/uL (130-430); RED BLOOD CELL COUNT(AUTO) 2.97 MIL/uL (4.2-6.2); RED CELL DISTRIBUTION WIDTH 14.6 % (9.0-15.0); WHITE BLOOD COUNT (AUTO) 4.9 K/uL (4.8-10.8)
[2022-05-10 08:22] LABS: PROTHROMBIN TIME 10.5 SECS (9.5-12.5)
[2022-05-10] MEDS: cefTRIAXone 1 GM IVPB PREMIX 50 ML IV SCH (08:42)
[2022-05-10] MEDS: ATORVASTATIN 10 MG TABLET PO SCH (08:43)
[2022-05-10] MEDS: hydrALAZINE HCL 25 MG TABLET PO SCH ×2 (08:43→21:07)
[2022-05-10] MEDS: PANTOPRAZOLE SODIUM 40 MG TAB PO SCH (08:43)
[2022-05-10] MEDS: CARBIDOPA/LEVODOPA 25/100 MG TABLET PO SCH ×3 (08:44→21:05)
[2022-05-10] MEDS: CARVEDILOL 25 MG TABLET (COREG) PO SCH ×2 (08:44→21:09)
[2022-05-10] MEDS: COMTAN 200 MG TAB PO SCH ×2 (08:45→21:05)
[2022-05-10] MEDS: LOSARTAN POTASSIUM 50 MG TABLET (COZAAR) PO SCH (08:45)
[2022-05-10 08:53] LABS: ANION GAP 7 (5-15); CALCIUM 8.7 mg/dL (8.4-11.0); CHLORIDE 104 mmol/L (98-107); CREATININE 0.69 mg/dL (0.55-1.30); GLUCOSE 186 mg/dL (70-99); POTASSIUM 3.9 mmol/L (3.5-5.1); UREA NITROGEN, BLOOD 9 mg/dL (8-21)
[2022-05-10] MEDS ORDERED: VALSARTAN 80 MG TABLET (DIOVAN) PO SCH (09:00)
[2022-05-10] MEDS: NACL 0.9% 1,000 ML IV SCH ×2 (09:10→14:14)
[2022-05-10 09:26] LABS: TOTAL IRON BIND. CAPACITY 166 ug/dL (250-450)
[2022-05-10] MEDS: traMADol HCL HCL 50 MG TABLET (ULTRAM) PO PRN (10:00)
[2022-05-10 12:00] VITALS: BP_SYST 142
--- NOTE | 2022-05-10 12:00 | NUR ---
Notes Resting in bed, wants to eat later. Seen by Dr. Villalta.
[2022-05-10 16:34] VITALS: BP_SYST 145
--- NOTE | 2022-05-10 19:20 | NUR ---
OPENING NOTES: Patient received from AM shift nurse. Patient is AA&Ox4 able to make needs known with no s/s of distress at this time. Patient describes abdominal discomfort and states that she believes is gas related. Chest rise is even and unlabored on RA, normal heart sounds S1 and S2 auscultated and is on tele monitoring. Active bowel sounds x4 on auscultation with no distention and denies pain with palpation. Patient is stable at this time. Call light is within reach, bed is in the lowest position and locked in place. Safety protocols are in place as per facility protocol. Will resume care for continuity of care and continue to monitor throughout the shift.
[2022-05-10 20:00] VITALS: BP_SYST 165
[2022-05-10] MEDS: clonazePAM 0.5 MG TABLET PO SCH (21:04)
[2022-05-10] MEDS: EZETIMIBE 10 MG TABLET PO SCH (21:07)
--- NOTE | 2022-05-10 21:45 | NUR ---
Shannon Nichole s/w [place]er[facility]
[2022-05-10] MEDS ORDERED: GLUCOSE (DEXTROSE) ORAL GEL -Adults PO PRN (22:30)
[2022-05-10] MEDS ORDERED: D5W 1,000 ML IV PRN (22:30)
[2022-05-10] MEDS ORDERED: DEXTROSE 50% JECT 50 ML DISP.SYRIN IVP PRN (22:30)
--- NOTE | 2022-05-10 22:30 | NUR ---
NEW ORDERS Dr. Nichole notified that patient asked for nurse to randomly check BS because she checks it at home and BS was noted to be elevated at 302. Patient states that normally at home she checked her BS ACHS and was on insulin but did not remember what kind. Dr. Nichole put in new orders for accucheck ACHS and regular insulin on sliding scale with hypoglycemia protocol. Orders were noted and carried out.
[2022-05-10] MEDS: INSULIN REGULAR, HUMAN 100 UNITS/ML, 3 ML VIAL (humuLIN R) SUBCUT PRN (22:58)
[2022-05-11 01:30] VITALS: BP_SYST 146
[2022-05-11] MEDS: LEVOTHYROXINE SODIUM 0.025 MG TABLET PO SCH (06:10)
[2022-05-11] MEDS: INSULIN REGULAR, HUMAN 100 UNITS/ML, 3 ML VIAL (humuLIN R) SUBCUT PRN ×4 (06:14→21:17)
[2022-05-11 07:14] LABS: BASOPHILS % (AUTO) 0.5 % (0.0-2.0); EOSINOPHILS # (AUTO) 0.1 K/uL (0.0-0.4); EOSINOPHILS % (AUTO) 1.9 % (0.0-4.0); HEMATOCRIT 27.2 % (36-48); LYMPHOCYTES # (AUTO) 1.3 K/uL (1.0-5.5); LYMPHOCYTES % (AUTO) 21.2 % (20.5-51.5); MEAN CORPUSCULAR VOLUME 88 fL (79.0-98.0); MONOCYTES # (AUTO) 0.6 K/uL (0.0-1.0); MONOCYTES % (AUTO) 10.1 % (1.7-9.3); NEUTROPHILS # (AUTO) 4.1 K/uL (1.8-7.7); NEUTROPHILS % (AUTO) 66.3 % (40.0-70.0); PLATELET COUNT (AUTO) 179 K/uL (130-430); RED BLOOD CELL COUNT(AUTO) 3.09 MIL/uL (4.2-6.2); RED CELL DISTRIBUTION WIDTH 14.8 % (9.0-15.0); WHITE BLOOD COUNT (AUTO) 6.2 K/uL (4.8-10.8)
--- NOTE | 2022-05-11 07:30 | NUR ---
OPENING NOTE Patient awake, resting in bed, no sign of distress. Patient complaining of a toothache pain, 2/10. Assisted patient to the restroom, patient requires nurse assist, gait is weak. All needs met at this time and safety checks made.
[2022-05-11 08:00] VITALS: BP_SYST 166
[2022-05-11 08:02] LABS: ALANINE AMINOTRANSFERASE 3 U/L (12-78); ALBUMIN 2.7 g/dL (3.4-4.8); ANION GAP 6 (5-15); ASPARTATE AMINOTRANSFERASE 17 U/L (10-37); CALCIUM 8.8 mg/dL (8.4-11.0); CHLORIDE 102 mmol/L (98-107); CREATININE 0.67 mg/dL (0.55-1.30); GLUCOSE 160 mg/dL (70-99); POTASSIUM 3.4 mmol/L (3.5-5.1); TOTAL BILIRUBIN 0.3 mg/dL (0.0-1.0); UREA NITROGEN, BLOOD 7 mg/dL (8-21)
[2022-05-11 08:06] LABS: FOLATE (FOLIC ACID) 11.1 ng/mL (>3.0)
[2022-05-11] MEDS: LOSARTAN POTASSIUM 50 MG TABLET (COZAAR) PO SCH (09:12)
[2022-05-11] MEDS: COMTAN 200 MG TAB PO SCH ×2 (09:12→21:13)
[2022-05-11] MEDS: PANTOPRAZOLE SODIUM 40 MG TAB PO SCH (09:13)
[2022-05-11] MEDS: ATORVASTATIN 10 MG TABLET PO SCH (09:13)
[2022-05-11] MEDS: hydrALAZINE HCL 25 MG TABLET PO SCH ×2 (09:13→21:12)
[2022-05-11] MEDS: CARVEDILOL 25 MG TABLET (COREG) PO SCH ×2 (09:13→21:15)
[2022-05-11] MEDS: CARBIDOPA/LEVODOPA 25/100 MG TABLET PO SCH ×3 (09:13→21:13)
[2022-05-11] MEDS: cefTRIAXone 1 GM IVPB PREMIX 50 ML IV SCH (09:17)
[2022-05-11] MEDS: traMADol HCL HCL 50 MG TABLET (ULTRAM) PO PRN ×2 (09:22→21:20)
[2022-05-11 11:23] VITALS: BP_SYST 135
[2022-05-11] MEDS: NACL 0.9% 1,000 ML IV SCH (11:50)
[2022-05-11] MEDS: ONDANSETRON HCL 4 MG/2 ML VIAL IVP PRN (13:31)
--- NOTE | 2022-05-11 13:48 | NUR ---
CRITICAL LAB: Laboratory called with critical lab value MRSA Screen results positive. Medical record number and patient name verified. Read back of values done. Tamera Kilgore LVN, notified of value.
[2022-05-11 15:22] VITALS: BP_SYST 148
--- NOTE | 2022-05-11 16:30 | NUR ---
Pt. was seen for OT evaluation, cleared by nursing. Pt was alert and cooperative, pls see OT eval in chart for more details.
--- NOTE | 2022-05-11 16:32 | NUR ---
CRITICAL LAB: Laboratory called with critical lab value positive urine culture. Medical record number and patient name verified. Read back of values done. Dr Taylor notified of value. MD input new orders given at this time.
[2022-05-11] MEDS ORDERED: POTASSIUM CHLORIDE 20 MEQ/PKT PACKET PO ONE (17:15)
--- NOTE | 2022-05-11 17:30 | NUR ---
ELEVATED BP Patient stated that she "felt like her blood pressure was high". Vitals were taken, blood pressure read 176/71. When rechecked, BP was 180/72. notified, new orders received.
[2022-05-11 17:55] VITALS: BP_SYST 180
[2022-05-11] MEDS: cloNIDine HCL 0.1 MG TABLET PO PRN (17:55)
--- NOTE | 2022-05-11 18:32 | NUR ---
CLOSING NOTE Patient in bed resting, eating dinner with son at bedside. Patient denies pain and has no sign of distress. Patient has been cooperative with her plan of care throughout the shift. Patient has been able to ambulate to the restroom with light assist, patient however is unable to produce a stool sample. All needs met at this time and safety checks made. Will endorse to flexographic press operator nurse.
--- NOTE | 2022-05-11 19:15 | NUR ---
OPENING NOTES: Patient received from AM shift nurse. Patient is AA&Ox4 able to make needs known with family at bedside, no s/s of distress noted at this time. Chest rise is even and unlabored on RA and is on tele monitoring. Active BS x4 on auscultation, no distention noted and no tenderness on palpation. Patient ambulates to restroom with assist and has been educated on using the call light for assistance. Safety protocols are in place such as bed is in the lowest position and locked with call light within reach. Patient is currently stable will resume care and continue to monitor throughout the shift.
[2022-05-11 20:00] VITALS: BP_SYST 164
[2022-05-11] MEDS: MEROPENEM 500 MG in NS 50 ML IV SCH (21:10)
[2022-05-11] MEDS: clonazePAM 0.5 MG TABLET PO SCH (21:13)
[2022-05-11] MEDS: EZETIMIBE 10 MG TABLET PO SCH (21:13)
[2022-05-11] MEDS: MUPIROCIN 2% TOPICAL OINTMENT 22 GM NS SCH (21:15)
[2022-05-12 00:42] VITALS: BP_SYST 123
[2022-05-12] MEDS: NACL 0.9% 1,000 ML IV SCH ×3 (06:11→21:03)
[2022-05-12] MEDS: LEVOTHYROXINE SODIUM 0.025 MG TABLET PO SCH (06:15)
[2022-05-12] MEDS: INSULIN REGULAR, HUMAN 100 UNITS/ML, 3 ML VIAL (humuLIN R) SUBCUT PRN ×4 (06:18→20:57)
--- NOTE | 2022-05-12 07:30 | NUR ---
OPENING NOTE Patient is in bed resting, no sign of distress. Patient complaining of pain in her mouth, 12/07. Patient updated on her plan of care. IV is patent and running prescribed fluids. Patient denies dizziness or nausea. All needs met at this time and safety checks made.
[2022-05-12 08:00] VITALS: BP_SYST 147
[2022-05-12] MEDS: ATORVASTATIN 10 MG TABLET PO SCH (09:48)
[2022-05-12] MEDS: COMTAN 200 MG TAB PO SCH ×2 (09:48→20:50)
[2022-05-12] MEDS: CARVEDILOL 25 MG TABLET (COREG) PO SCH ×2 (09:49→20:53)
[2022-05-12] MEDS: hydrALAZINE HCL 25 MG TABLET PO SCH ×2 (09:49→20:52)
[2022-05-12] MEDS: MUPIROCIN 2% TOPICAL OINTMENT 22 GM NS SCH ×2 (09:50→20:54)
[2022-05-12] MEDS: LOSARTAN POTASSIUM 50 MG TABLET (COZAAR) PO SCH (09:50)
[2022-05-12] MEDS: CARBIDOPA/LEVODOPA 25/100 MG TABLET PO SCH ×3 (09:50→20:53)
[2022-05-12] MEDS: PANTOPRAZOLE SODIUM 40 MG TAB PO SCH (09:50)
[2022-05-12] MEDS: MEROPENEM 500 MG in NS 50 ML IV SCH ×2 (09:58→20:47)
[2022-05-12] MEDS: traMADol HCL HCL 50 MG TABLET (ULTRAM) PO PRN ×2 (10:05→16:18)
--- NOTE | 2022-05-12 12:29 | NUR ---
PATIENT UP WITH PT Patient is ambulating with physical therapy. Patient is utilizing a walker; patient is walking cautiously.
[2022-05-12 12:45] VITALS: BP_SYST 158
[2022-05-12] MEDS: ONDANSETRON HCL 4 MG/2 ML VIAL IVP PRN ×2 (13:48→21:08)
[2022-05-12 16:30] VITALS: BP_SYST 156
--- NOTE | 2022-05-12 16:42 | NUR ---
PATIENT WORKING WITH OT Patient working with OT and did some exercises. Patient complained of nausea despite having received Zofran. Patient's blood pressure increased while out of bed and patient stated she started to feel dizzy. Returned to bed, no sign of distress.
--- NOTE | 2022-05-12 16:55 | NUR ---
Patient was seen for OT tx, cleared by nursing for tx. Pt was alert and cooperative. pls see OT tx notes in chart for more details. Pt. was returned to bed, supine comfortable and call light within reached. Nursing notified about pt's performance during tx.
--- NOTE | 2022-05-12 18:38 | NUR ---
CLOSING NOTE Patient in bed resting, no sign of distress. Patient complaining of pain in her mouth and a headache, patient aware of when she will be able to receive her next pain medication; comfort measures provided now. Patient has been able to ambulate with assist to the restroom throughout the shift. IV is patent and running prescribed fluids. Patient and family updated on the plan of care. All needs met at this time and safety checks made. Will endorse to night guard nurse.
--- NOTE | 2022-05-12 19:26 | NUR ---
Patient received from AM shift nurse. Patient is AA&Ox4 able to make needs known, currently resting with no s/s of distress at this time. Chest rise is even and unlabored on RA and on tele monitoring. Active bowel sounds are present x4 on auscultation and denies pain on palpation. Safety measures are in place as per protocol including: Call light within reach, bed in the lowest position and locked. Patient is currently stable at this time. Will resume care for continuity of care and continue to monitor throughout the shift.
[2022-05-12 20:00] VITALS: BP_SYST 166
[2022-05-12] MEDS: clonazePAM 0.5 MG TABLET PO SCH (20:52)
[2022-05-12] MEDS: EZETIMIBE 10 MG TABLET PO SCH (20:53)
[2022-05-13 01:12] VITALS: BP_SYST 144
[2022-05-13] MEDS: LEVOTHYROXINE SODIUM 0.025 MG TABLET PO SCH (06:20)
[2022-05-13] MEDS: INSULIN REGULAR, HUMAN 100 UNITS/ML, 3 ML VIAL (humuLIN R) SUBCUT PRN ×3 (06:23→21:06)
[2022-05-13 06:43] LABS: BASOPHILS % (AUTO) 0.6 % (0.0-2.0); EOSINOPHILS # (AUTO) 0.2 K/uL (0.0-0.4); EOSINOPHILS % (AUTO) 2.6 % (0.0-4.0); HEMATOCRIT 25.7 % (36-48); LYMPHOCYTES # (AUTO) 1.3 K/uL (1.0-5.5); LYMPHOCYTES % (AUTO) 21.7 % (20.5-51.5); MEAN CORPUSCULAR VOLUME 88 fL (79.0-98.0); MONOCYTES # (AUTO) 0.6 K/uL (0.0-1.0); NEUTROPHILS % (AUTO) 65.1 % (40.0-70.0); PLATELET COUNT (AUTO) 180 K/uL (130-430); RED BLOOD CELL COUNT(AUTO) 2.93 MIL/uL (4.2-6.2); WHITE BLOOD COUNT (AUTO) 6.1 K/uL (4.8-10.8)
[2022-05-13 07:42] LABS: ANION GAP 7 (5-15); CALCIUM 8.7 mg/dL (8.4-11.0); CHLORIDE 99 mmol/L (98-107); CREATININE 0.65 mg/dL (0.55-1.30); GLUCOSE 152 mg/dL (70-99); POTASSIUM 3.7 mmol/L (3.5-5.1); UREA NITROGEN, BLOOD 7 mg/dL (8-21)
--- NOTE | 2022-05-13 07:56 | NUR ---
PHYSICAL THERAPY CO-SIGN The Physical Therapy Progress Notes documented by Bread Distributor have been reviewed. Reviewed/Co-Signed by: James Carbone Documentation Done by: JOSE STALEY PTA Addendum: 05/13/22 at 0756 by James Carbone PT Amended: Links added.
[2022-05-13 08:00] VITALS: BP_SYST 156
[2022-05-13] MEDS: CARBIDOPA/LEVODOPA 25/100 MG TABLET PO SCH ×3 (09:28→20:58)
[2022-05-13] MEDS: PANTOPRAZOLE SODIUM 40 MG TAB PO SCH (09:28)
[2022-05-13] MEDS: COMTAN 200 MG TAB PO SCH ×2 (09:28→21:00)
[2022-05-13] MEDS: ATORVASTATIN 10 MG TABLET PO SCH (09:29)
[2022-05-13] MEDS: hydrALAZINE HCL 25 MG TABLET PO SCH ×2 (09:30→21:01)
[2022-05-13] MEDS: LOSARTAN POTASSIUM 50 MG TABLET (COZAAR) PO SCH ×2 (09:41→23:05)
[2022-05-13] MEDS: CARVEDILOL 25 MG TABLET (COREG) PO SCH ×2 (09:42→21:01)
[2022-05-13] MEDS: ONDANSETRON HCL 4 MG/2 ML VIAL IVP PRN (09:56)
[2022-05-13] MEDS: MEROPENEM 500 MG in NS 50 ML IV SCH ×2 (11:10→21:19)
[2022-05-13] MEDS: MUPIROCIN 2% TOPICAL OINTMENT 22 GM NS SCH ×2 (11:11→21:02)
--- NOTE | 2022-05-13 13:15 | NUR ---
Discharge Planning: DCP faxed pt referral to [facility] [phone] DCP to follow up.
[2022-05-13] MEDS: traMADol HCL HCL 50 MG TABLET (ULTRAM) PO PRN (13:16)
[2022-05-13 15:26] VITALS: BP_SYST 165
--- NOTE | 2022-05-13 17:02 | NUR ---
Patient was cleared for OT tx by nursing. Pt was alert and cooperative, tolerated bed mobility and toilet transfers training. Tolerated static and dynamic balance activities in sitting and standing. Denies any pain during and after tx. Comlain of light dizziness after tx. BP 162/60 while sitting at edge of bed. Pt. was returned back in bed, fowlers position, comfortable, call light with in reached. Nursing notified.
--- NOTE | 2022-05-13 17:12 | NUR ---
Patient accepted at [facility] room 17A. Number for report [phone]. Ambulance transport at 6:30PM by [facility] . DC code 03
[2022-05-13 17:37] VITALS: BP_SYST 165
--- NOTE | 2022-05-13 19:27 | NUR ---
CALLED [facility] I SPOKE TO MICHELLE GANT TIME WILL BE AT 192 Addendum: 05/13/22 at 2050 by Erin Valdes NE/ picked up time 2024
[2022-05-13 20:00] VITALS: BP_SYST 175
--- NOTE | 2022-05-13 20:51 | NUR ---
CALLED [facility] AGAIN I SPOKE TO DINA NOW THEY GAME ANOTHER ETA AT 22OO LAST TIME I CALLED MICHELLE TOLD ME COAT FINISHER TIME 2024
[2022-05-13] MEDS: EZETIMIBE 10 MG TABLET PO SCH (20:58)
[2022-05-13] MEDS: clonazePAM 0.5 MG TABLET PO SCH (20:58)
[2022-05-13] MEDS: cloNIDine HCL 0.1 MG TABLET PO PRN (21:10)
[2022-05-13 21:22] VITALS: BP_SYST 218
--- NOTE | 2022-05-13 22:23 | NUR ---
Dr. Singleton on the unit and made aware of patient's high bp > 200's. Ordered to hold DC for tonight and keep patient. Will order BP meds. Patient made aware.
[2022-05-13] MEDS ORDERED: hydrALAZINE HCL 20 MG/ML VIAL IVP PRN (22:30)
[2022-05-14] VITALS (8 sets, daily range): BP systolic 110–180
--- NOTE | 2022-05-14 05:47 | NUR ---
I CALLED [facility] TO PUT THIS PATIENT ON WILL CALL I SPOKE TO DINA LEACH THIS PATIENT MAY BE DC TODAY
[2022-05-14] MEDS: INSULIN REGULAR, HUMAN 100 UNITS/ML, 3 ML VIAL (humuLIN R) SUBCUT PRN ×2 (06:19→12:07)
[2022-05-14] MEDS: LEVOTHYROXINE SODIUM 0.025 MG TABLET PO SCH (06:19)
[2022-05-14] MEDS: traMADol HCL HCL 50 MG TABLET (ULTRAM) PO PRN ×2 (08:46→15:29)
[2022-05-14] MEDS: ONDANSETRON HCL 4 MG/2 ML VIAL IVP PRN (08:47)
[2022-05-14] MEDS: ATORVASTATIN 10 MG TABLET PO SCH (08:47)
[2022-05-14] MEDS: PANTOPRAZOLE SODIUM 40 MG TAB PO SCH (08:47)
[2022-05-14] MEDS: COMTAN 200 MG TAB PO SCH (08:47)
[2022-05-14] MEDS: hydrALAZINE HCL 25 MG TABLET PO SCH (08:48)
[2022-05-14] MEDS: LOSARTAN POTASSIUM 50 MG TABLET (COZAAR) PO SCH (08:49)
[2022-05-14] MEDS: MUPIROCIN 2% TOPICAL OINTMENT 22 GM NS SCH (08:50)
[2022-05-14] MEDS: CARVEDILOL 25 MG TABLET (COREG) PO SCH (08:51)
[2022-05-14] MEDS: CARBIDOPA/LEVODOPA 25/100 MG TABLET PO SCH ×2 (08:51→15:28)
[2022-05-14] MEDS: MEROPENEM 500 MG in NS 50 ML IV SCH (08:53)
--- NOTE | 2022-05-14 11:33 | NUR ---
Discharge Planning: DCP faxed pt referral to [facility] [phone] [facility] transport arranged with [facility] 3:30pm. CM made nurse aware, patient packet already at nurse station.
--- NOTE | 2022-05-14 11:54 | NUR ---
DISCHARGE PLANNING Called & spoke with Dr Taylor and gave ph order to dc to SNF. Spoke with pt at bedside and agreeable with dc to [facility] today at 330pm. States to inform dtr. Called & spoke with dtr Asmita,ph [phone], and informed, agrees with dc. Informed pt's nurse.
--- NOTE | 2022-05-14 13:58 | NUR ---
patient's own med spoke with lighting technician jose, verified that pt has no medication in storage in pharmacy.
--- NOTE | 2022-05-14 16:52 | NUR ---
D/C Patient Patient given medication reconciliation form and D/C instructions. Exit Care provided. Patient verbalized understanding. MD discussed with patient the results and treatment provided. transported throught [facility]. Patient in stable condition, ID band removed. IV catheter removed, intact and dressing applied, no active bleeding. List of medications given to transport. Patient educated on pain management. All belongings sent with patient.
== END 2022-05-14 16:30 | DRG 690 ==
LOC: SED 19:50 → STU 05-09 06:17 → SMU 05-13 15:38
PROVIDERS: ADMIT Internal Medicine; ATTEND Internal Medicine
DX: N39.0 Urinary tract infection, site not specified (principal); E87.1 Hypo-osmolality and hyponatremia; E44.0 Moderate protein-calorie malnutrition; G20 Parkinson's disease; E11.9 Type 2 diabetes mellitus without complications; E78.5 Hyperlipidemia, unspecified; E03.9 Hypothyroidism, unspecified; I10 Essential (primary) hypertension; Z20.822 Contact with and (suspected) exposure to COVID-19; F41.9 Anxiety disorder, unspecified; Z79.899 Other long term (current) drug therapy; Z88.5 Allergy status to narcotic agent; Z88.8 Allergy status to other drugs, medicaments and biological substances
CPT/HCPCS: 36415; 70450-TC; 71045; 76376; 80048; 80053; 80307; 81000; 82607; 82728; 82746; 82962; 83540; 83550; 83735; 84439; 84443; 84484; 85025; 85610-TC; 85730-TC; 87081; 87086; 93005; 97112-GP; 97116-GP; 97530-GO; 97535-GO; 99285; G0378; G0482; J0696; J1815; J2185; J2405; J8597

== ENCOUNTER 2024-04-13 13:48 | Inpatient (IN) | payer OTHER, MEDICAID ==
[~2024-04-13] VITALS: Ht 170.2 cm; Wt 81.6 kg
[~2024-04-13 13:48] MED LIST changes: +ATOR-449 PO; +CARV25TA55 PO; +CAT1PAT TD; +CLON0.5T4 PO; -CLON1TAB12 PO; -DEXL60CA4 PO; -ESCI10TA PO; -GABA-529 PO; -GABA-533 PO; +HYDR50TA44 PO; -INSU100V38 SQ; +LEVO25TA7 PO; -LINA145C PO; -LISI-209 PO; -ONDA4TAB55 PO; +PRO40 PO; -SIMV-341 PO; -SSNOVOLOG SUBCUT; +VALS80TA2 PO; -novolog flex pen SUBCUT
[2024-04-13 13:59] VITALS: BP_SYST 157; PULSE 73; RESP 20; TEMP 98.3; O2SAT 95
[2024-04-13] MEDS: NACL 0.9% 1,000 ML IV ONE (14:46)
[2024-04-13] MEDS: DIPHENHYDRAMINE INJ 50 MG/ML VIAL IVP ONE (14:47)
[2024-04-13] MEDS: ONDANSETRON HCL 4 MG/2 ML VIAL IVP ONE (14:48)
[2024-04-13] MEDS: METOCLOPRAMIDE HCL 10 MG/2 ML VIAL IVP ONE (14:50)
[2024-04-13] MEDS: PANTOPRAZOLE SODIUM 40 MG/VIAL (PROTONIX) IVP ONE (14:51)
[2024-04-13 14:54] LABS: BASOPHILS % (AUTO) 0.4 % (0.0-2.0); EOSINOPHILS # (AUTO) 0.2 K/uL (0.0-0.4); EOSINOPHILS % (AUTO) 1.8 % (0.0-4.0); HEMATOCRIT 31.1 % (36-48); HEMOGLOBIN 10.3 g/dL (12.0-16.0); LYMPHOCYTES # (AUTO) 2.1 K/uL (1.0-5.5); LYMPHOCYTES % (AUTO) 22.8 % (20.5-51.5); MEAN CORPUSCULAR HEMOGLOBIN 30 pg (27-31); MEAN CORPUSCULAR HGB CONC 33 % (32-36); MEAN CORPUSCULAR VOLUME 90 fL (79.0-98.0); MONOCYTES # (AUTO) 0.7 K/uL (0.0-1.0); MONOCYTES % (AUTO) 7.1 % (1.7-9.3); NEUTROPHILS # (AUTO) 6.4 K/uL (1.8-7.7); NEUTROPHILS % (AUTO) 67.9 % (40.0-70.0); PLATELET COUNT (AUTO) 209 K/uL (130-430); RED BLOOD CELL COUNT(AUTO) 3.45 MIL/uL (4.2-6.2); RED CELL DISTRIBUTION WIDTH 15.4 % (9.0-15.0); WHITE BLOOD COUNT (AUTO) 9.4 K/uL (4.8-10.8)
[2024-04-13 15:16] LABS: ALBUMIN 2.9 g/dL (3.4-4.8); ANION GAP 3 (5-15); ASPARTATE AMINOTRANSFERASE 20 U/L (10-37); BILIRUBIN,DIRECT 0.1 mg/dL (0.0-0.3); CALCIUM 8.9 mg/dL (8.4-11.0); CARBON DIOXIDE 30 mmol/L (23-29); CHLORIDE 100 mmol/L (98-107); CREATININE 0.85 mg/dL (0.55-1.30); GLUCOSE 133 mg/dL (74-106); LIPASE 42 U/L (16-77); POTASSIUM 4.1 mmol/L (3.5-5.1); SODIUM SERUM 133 mmol/L (136-145); TOTAL BILIRUBIN 0.5 mg/dL (0.0-1.0); TOTAL PROTEIN, SERUM 7.2 g/dL (6.4-8.3); UREA NITROGEN, BLOOD 16 mg/dL (8-21)
[2024-04-13 15:31] LABS: ALANINE AMINOTRANSFERASE 7 U/L (12-78)
[2024-04-13 16:03] LABS: BILIRUBIN,URINE NEGATIVE (NEGATIVE); BLOOD, URINE 2+ (NEGATIVE); CLARITY/URINE SL CLOUDY (CLEAR); COLOR,URINE YELLOW (YELLOW); GLUCOSE,URINE NEGATIVE (NEGATIVE); KETONES,URINE NEGATIVE (NEGATIVE); LEUKOCYTE ESTERASE ,URINE 2+ (NEGATIVE); NITRITE, URINE NEGATIVE (NEGATIVE); PROTEIN URINE 2+ (NEGATIVE); UROBILINOGEN,URINE 0.2 (0.2-1.0)
[2024-04-13 16:20] LABS: BACTERIA,URINE MANY /HPF (None Seen)
[2024-04-13] MEDS: KCL 20 mEq in NS 1000 mL 1,000 ML IV SCH (18:00)
[2024-04-13] MEDS ORDERED: INSULIN REGULAR, HUMAN 100 UNITS/ML, 3 ML VIAL (humuLIN R) SUBCUT PRN (19:00)
[2024-04-13] MEDS ORDERED: LevALBUTEROL HCL 1.25 MG/0.5 ML *CONC.* VIAL.NEB (XOPENEX CONC.) INH PRN (19:00)
[2024-04-13 19:04] VITALS: BP_SYST 157; PULSE 62; O2SAT 95
[2024-04-13 21:07] VITALS: BP_SYST 154; PULSE 57; RESP 18; TEMP 98.3; O2SAT 63
[2024-04-13 23:30] VITALS: O2SAT 97
[2024-04-13] MEDS: CEFEPIME 1 GM in D5W 50 ML IV SCH (23:48)
[2024-04-13] MEDS: CARBIDOPA/LEVODOPA 25/100 MG TABLET PO SCH (23:53)
[2024-04-13] MEDS: PANTOPRAZOLE SODIUM 40 MG/VIAL (PROTONIX) IVP SCH (23:53)
[2024-04-13] MEDS: ENTACAPONE 200 MG TAB PO SCH (23:55)
[2024-04-13] MEDS: hydrALAZINE HCL 25 MG TABLET PO SCH (23:56)
[2024-04-13] MEDS: EZETIMIBE 10 MG TABLET PO SCH (23:56)
[2024-04-14] VITALS (8 sets, daily range): BP systolic 141–152; PULSE 64–76; RESP 14–18; TEMP 98.2–100; O2SAT 94–97
[2024-04-14] MEDS: metroNIDAZOLE 500 mg/NS 100 ML IV SCH (00:27)
[2024-04-14] MEDS: CARVEDILOL 25 MG TABLET (COREG) PO SCH (00:28)
[2024-04-14] MEDS: metroNIDAZOLE 500 mg/NS 100 ML IV ONE (05:17)
[2024-04-14 06:43] LABS: BASOPHILS % (AUTO) 0.5 % (0.0-2.0); EOSINOPHILS # (AUTO) 0.2 K/uL (0.0-0.4); EOSINOPHILS % (AUTO) 3.4 % (0.0-4.0); HEMATOCRIT 26.9 % (36-48); HEMOGLOBIN 9.1 g/dL (12.0-16.0); LYMPHOCYTES # (AUTO) 1.8 K/uL (1.0-5.5); LYMPHOCYTES % (AUTO) 27.5 % (20.5-51.5); MEAN CORPUSCULAR HEMOGLOBIN 31 pg (27-31); MEAN CORPUSCULAR HGB CONC 34 % (32-36); MEAN CORPUSCULAR VOLUME 91 fL (79.0-98.0); MONOCYTES # (AUTO) 0.6 K/uL (0.0-1.0); MONOCYTES % (AUTO) 8.8 % (1.7-9.3); NEUTROPHILS % (AUTO) 59.8 % (40.0-70.0); PLATELET COUNT (AUTO) 183 K/uL (130-430); RED BLOOD CELL COUNT(AUTO) 2.95 MIL/uL (4.2-6.2); RED CELL DISTRIBUTION WIDTH 15.7 % (9.0-15.0); WHITE BLOOD COUNT (AUTO) 6.7 K/uL (4.8-10.8)
[2024-04-14] MEDS: LevALBUTEROL HCL 1.25 MG/0.5 ML *CONC.* VIAL.NEB (XOPENEX CONC.) INH SCH (07:47)
[2024-04-14 07:51] LABS: ALANINE AMINOTRANSFERASE 7 U/L (12-78); ALBUMIN 2.5 g/dL (3.4-4.8); ANION GAP 4 (5-15); ASPARTATE AMINOTRANSFERASE 22 U/L (10-37); CALCIUM 8.3 mg/dL (8.4-11.0); CARBON DIOXIDE 27 mmol/L (23-29); CHLORIDE 106 mmol/L (98-107); CREATININE 0.93 mg/dL (0.55-1.30); GLUCOSE 134 mg/dL (74-106); POTASSIUM 4.4 mmol/L (3.5-5.1); SODIUM SERUM 137 mmol/L (136-145); TOTAL BILIRUBIN 0.4 mg/dL (0.0-1.0); TOTAL PROTEIN, SERUM 6.3 g/dL (6.4-8.3); UREA NITROGEN, BLOOD 14 mg/dL (8-21)
[2024-04-14] MEDS: LEVOTHYROXINE SODIUM 0.025 MG TABLET PO SCH (09:38)
[2024-04-14] MEDS: LOSARTAN POTASSIUM 50 MG TABLET (COZAAR) PO SCH (09:39)
[2024-04-14] MEDS: fentaNYL CITRATE/PF 100 MCG/2 ML AMP ONE (12:55)
[2024-04-14] MEDS: MIDAZOLAM HCL 5 MG/5 ML VIAL ONE (12:55)
[2024-04-14] MEDS: BENZOCAINE 20% 0.5mL UD SPRAY MM ONE (13:36)
[2024-04-14] MEDS: INSULIN REGULAR, HUMAN 100 UNITS/ML, 3 ML VIAL (humuLIN R) SUBCUT PRN (22:03)
[2024-04-15] VITALS (10 sets, daily range): BP systolic 138–205; PULSE 65–102; RESP 16–18; TEMP 98.1–100; O2SAT 96–100
[2024-04-15] MEDS: cloNIDine HCL 0.2 MG TABLET PO PRN (02:34)
[2024-04-15 08:03] LABS: ANION GAP 9 (5-15); CALCIUM 8.6 mg/dL (8.4-11.0); CARBON DIOXIDE 23 mmol/L (23-29); CHLORIDE 104 mmol/L (98-107); CREATININE 0.87 mg/dL (0.55-1.30); GLUCOSE 194 mg/dL (74-106); POTASSIUM 4.4 mmol/L (3.5-5.1); SODIUM SERUM 136 mmol/L (136-145); UREA NITROGEN, BLOOD 12 mg/dL (8-21)
[2024-04-15 08:37] LABS: EOSINOPHILS # (AUTO) 0.2 K/uL (0.0-0.4); EOSINOPHILS % (AUTO) 1.8 % (0.0-4.0); HEMATOCRIT 27.7 % (36-48); HEMOGLOBIN 9.5 g/dL (12.0-16.0); MONOCYTES # (AUTO) 0.7 K/uL (0.0-1.0)
[2024-04-15 08:41] LABS: BASOPHILS % (AUTO) 0.4 % (0.0-2.0); LYMPHOCYTES # (AUTO) 1.9 K/uL (1.0-5.5); LYMPHOCYTES % (AUTO) 22.5 % (20.5-51.5); MEAN CORPUSCULAR HEMOGLOBIN 31 pg (27-31); MEAN CORPUSCULAR HGB CONC 34 % (32-36); MEAN CORPUSCULAR VOLUME 90 fL (79.0-98.0); MONOCYTES % (AUTO) 7.7 % (1.7-9.3); NEUTROPHILS # (AUTO) 5.8 K/uL (1.8-7.7); NEUTROPHILS % (AUTO) 67.6 % (40.0-70.0); PLATELET COUNT (AUTO) 186 K/uL (130-430); RED BLOOD CELL COUNT(AUTO) 3.08 MIL/uL (4.2-6.2); RED CELL DISTRIBUTION WIDTH 15.3 % (9.0-15.0)
[2024-04-15 09:20] LABS: WHITE BLOOD COUNT (AUTO) 8.6 K/uL (4.8-10.8)
[2024-04-15] MEDS: traMADol HCL HCL 50 MG TABLET (ULTRAM) PO PRN (15:56)
[2024-04-15] MEDS: ONDANSETRON HCL 4 MG/2 ML VIAL IVP PRN (20:21)
[2024-04-16] VITALS (9 sets, daily range): BP systolic 140–201; PULSE 63–78; RESP 16–18; TEMP 97.7–98.7; O2SAT 93–98
[2024-04-16] MEDS: cloNIDine HCL 0.2 MG TABLET PO SCH (22:22)
[2024-04-17] VITALS (9 sets, daily range): BP systolic 160–194; PULSE 62–76; RESP 18–20; TEMP 97.6–99.4; O2SAT 95–99
[2024-04-17] MEDS: METOCLOPRAMIDE HCL 10 MG/2 ML VIAL IVP PRN (12:31)
[2024-04-17] MEDS ORDERED: DIATR MEGLU/DIATRIZ SOD 30 ML SOLUTION PO ONE (15:34)
[2024-04-17] MEDS: hydrALAZINE HCL 20 MG/ML VIAL IVP PRN (15:58)
[2024-04-17] MEDS: ONDANSETRON HCL 4 MG/2 ML VIAL IVP PRN (15:59)
[2024-04-17] MEDS: KCL 20 mEq in 0.45% NS 1000 mL 1,000 ML IV SCH (16:06)
[2024-04-17] MEDS: LOSARTAN POTASSIUM 50 MG TABLET (COZAAR) PO ONE (17:57)
[2024-04-17] MEDS: hydrALAZINE HCL 25 MG TABLET PO ONE (17:57)
[2024-04-17] MEDS ORDERED: iohexoL 350 mgI/mL, 100 ML INFUS..BTL IV ONE (20:59)
[2024-04-17] MEDS: LOSARTAN POTASSIUM 50 MG TABLET (COZAAR) PO SCH (22:50)
[2024-04-17] MEDS: hydrALAZINE HCL 25 MG TABLET PO SCH (23:03)
[2024-04-18] VITALS (10 sets, daily range): BP systolic 143–187; PULSE 64–74; RESP 18–20; TEMP 97.8–98.7; O2SAT 94–99
[2024-04-18 07:50] LABS: ANION GAP 9 (5-15); CALCIUM 8.7 mg/dL (8.4-11.0); CARBON DIOXIDE 23 mmol/L (23-29); CHLORIDE 89 mmol/L (98-107); CREATININE 0.75 mg/dL (0.55-1.30); GLUCOSE 180 mg/dL (74-106); POTASSIUM 3.8 mmol/L (3.5-5.1); SODIUM SERUM 121 mmol/L (136-145); UREA NITROGEN, BLOOD 10 mg/dL (8-21)
[2024-04-18 08:04] LABS: BASOPHILS % (AUTO) 0.3 % (0.0-2.0); EOSINOPHILS # (AUTO) 0.1 K/uL (0.0-0.4); EOSINOPHILS % (AUTO) 0.6 % (0.0-4.0); HEMATOCRIT 32.6 % (36-48); HEMOGLOBIN 11.6 g/dL (12.0-16.0); LYMPHOCYTES # (AUTO) 1.4 K/uL (1.0-5.5); LYMPHOCYTES % (AUTO) 13.6 % (20.5-51.5); MEAN CORPUSCULAR HEMOGLOBIN 31 pg (27-31); MEAN CORPUSCULAR HGB CONC 36 % (32-36); MEAN CORPUSCULAR VOLUME 87 fL (79.0-98.0); MONOCYTES # (AUTO) 0.8 K/uL (0.0-1.0); NEUTROPHILS # (AUTO) 8.2 K/uL (1.8-7.7); NEUTROPHILS % (AUTO) 77.5 % (40.0-70.0); PLATELET COUNT (AUTO) 210 K/uL (130-430); RED BLOOD CELL COUNT(AUTO) 3.74 MIL/uL (4.2-6.2); RED CELL DISTRIBUTION WIDTH 15.3 % (9.0-15.0); WHITE BLOOD COUNT (AUTO) 10.5 K/uL (4.8-10.8)
[2024-04-18] MEDS: MAGNESIUM SULFATE 4 GM in D5W 250 ML IV ONE (10:41)
[2024-04-18] MEDS: KCL 20 mEq in NS 1000 mL 1,000 ML IV SCH (12:37)
[2024-04-18] MEDS: ONDANSETRON HCL 4 MG/2 ML VIAL IVP SCH (17:57)
[2024-04-19] VITALS (7 sets, daily range): BP systolic 143–205; PULSE 63–98; RESP 16–20; TEMP 97–98.6; O2SAT 92–100
[2024-04-19 08:20] LABS: ANION GAP 9 (5-15); CALCIUM 8.4 mg/dL (8.4-11.0); CARBON DIOXIDE 22 mmol/L (23-29); CHLORIDE 88 mmol/L (98-107); CREATININE 0.69 mg/dL (0.55-1.30); GLUCOSE 196 mg/dL (74-106); POTASSIUM 3.5 mmol/L (3.5-5.1); UREA NITROGEN, BLOOD 11 mg/dL (8-21)
[2024-04-19 08:21] LABS: SODIUM SERUM 119 mmol/L (136-145)
[2024-04-19 08:50] LABS: BASOPHILS % (AUTO) 0.3 % (0.0-2.0); EOSINOPHILS # (AUTO) 0.1 K/uL (0.0-0.4); EOSINOPHILS % (AUTO) 0.6 % (0.0-4.0); HEMATOCRIT 32.8 % (36-48); HEMOGLOBIN 11.4 g/dL (12.0-16.0); LYMPHOCYTES # (AUTO) 1.5 K/uL (1.0-5.5); LYMPHOCYTES % (AUTO) 14.7 % (20.5-51.5); MEAN CORPUSCULAR HEMOGLOBIN 30 pg (27-31); MEAN CORPUSCULAR HGB CONC 35 % (32-36); MEAN CORPUSCULAR VOLUME 88 fL (79.0-98.0); MONOCYTES % (AUTO) 9.4 % (1.7-9.3); NEUTROPHILS # (AUTO) 7.8 K/uL (1.8-7.7); PLATELET COUNT (AUTO) 238 K/uL (130-430); RED BLOOD CELL COUNT(AUTO) 3.74 MIL/uL (4.2-6.2); RED CELL DISTRIBUTION WIDTH 15.3 % (9.0-15.0); WHITE BLOOD COUNT (AUTO) 10.4 K/uL (4.8-10.8)
[2024-04-19] MEDS: clonazePAM 0.5 MG TABLET PO ONE (10:56)
[2024-04-19] MEDS: SODIUM CHLORIDE 3% *HI-ALERT* 300 ML IV ONE (11:04)
[2024-04-19] MEDS: CARBIDOPA/LEVODOPA 25/100 MG TABLET PO ONE (12:25)
[2024-04-19] MEDS: clonazePAM 0.5 MG TABLET PO SCH (20:45)
[2024-04-20] VITALS (9 sets, daily range): BP systolic 127–183; PULSE 57–76; RESP 16–20; TEMP 97.3–98; O2SAT 97–99
[2024-04-20 07:59] LABS: BASOPHILS % (AUTO) 0.3 % (0.0-2.0); EOSINOPHILS # (AUTO) 0.1 K/uL (0.0-0.4); EOSINOPHILS % (AUTO) 1.2 % (0.0-4.0); HEMATOCRIT 31.7 % (36-48); LYMPHOCYTES # (AUTO) 1.6 K/uL (1.0-5.5); LYMPHOCYTES % (AUTO) 17.8 % (20.5-51.5); MEAN CORPUSCULAR HEMOGLOBIN 31 pg (27-31); MEAN CORPUSCULAR HGB CONC 35 % (32-36); MEAN CORPUSCULAR VOLUME 88 fL (79.0-98.0); MONOCYTES # (AUTO) 0.9 K/uL (0.0-1.0); MONOCYTES % (AUTO) 10.1 % (1.7-9.3); NEUTROPHILS # (AUTO) 6.4 K/uL (1.8-7.7); NEUTROPHILS % (AUTO) 70.6 % (40.0-70.0); PLATELET COUNT (AUTO) 216 K/uL (130-430); RED BLOOD CELL COUNT(AUTO) 3.62 MIL/uL (4.2-6.2); RED CELL DISTRIBUTION WIDTH 15.2 % (9.0-15.0); WHITE BLOOD COUNT (AUTO) 9.1 K/uL (4.8-10.8)
[2024-04-20 08:09] LABS: ALANINE AMINOTRANSFERASE 25 U/L (12-78); ALBUMIN 2.6 g/dL (3.4-4.8); ANION GAP 8 (5-15); ASPARTATE AMINOTRANSFERASE 31 U/L (10-37); CALCIUM 8.3 mg/dL (8.4-11.0); CARBON DIOXIDE 25 mmol/L (23-29); CHLORIDE 90 mmol/L (98-107); CREATININE 0.75 mg/dL (0.55-1.30); GLUCOSE 184 mg/dL (74-106); POTASSIUM 3.4 mmol/L (3.5-5.1); SODIUM SERUM 123 mmol/L (136-145); THYROID STIMULATING HORMONE 5.23 uIu/mL (0.34-4.82); TOTAL BILIRUBIN 0.6 mg/dL (0.0-1.0); TOTAL PROTEIN, SERUM 6.4 g/dL (6.4-8.3); UREA NITROGEN, BLOOD 10 mg/dL (8-21)
[2024-04-20] MEDS ORDERED: cloNIDine HCL 0.1 MG/24 HR PATCH.TDWK TD SCH (09:00)
[2024-04-20] MEDS: SODIUM CHLORIDE 3% *HI-ALERT* 500 ML IV SCH (12:01)
[2024-04-20] MEDS: POTASSIUM CHLORIDE 40 MEQ, MAGNESIUM SULFATE 2 GM in 0.45% NS 250 ML IV ONE (12:26)
[2024-04-21] VITALS (9 sets, daily range): BP systolic 141–171; PULSE 60–97; RESP 17–20; TEMP 96.6–98.1; O2SAT 96–98
[2024-04-21 08:04] LABS: ALANINE AMINOTRANSFERASE 25 U/L (12-78); ALBUMIN 2.2 g/dL (3.4-4.8); ANION GAP 9 (5-15); ASPARTATE AMINOTRANSFERASE 20 U/L (10-37); CARBON DIOXIDE 23 mmol/L (23-29); CHLORIDE 99 mmol/L (98-107); CREATININE 0.81 mg/dL (0.55-1.30); GLUCOSE 114 mg/dL (74-106); PHOSPHORUS 3.7 mg/dL (2.7-4.5); POTASSIUM 3.5 mmol/L (3.5-5.1); SODIUM SERUM 131 mmol/L (136-145); TOTAL BILIRUBIN 0.4 mg/dL (0.0-1.0); TOTAL PROTEIN, SERUM 5.6 g/dL (6.4-8.3); UREA NITROGEN, BLOOD 13 mg/dL (8-21)
[2024-04-21] MEDS: METOCLOPRAMIDE HCL 10 MG/2 ML VIAL IVP SCH (09:43)
[2024-04-21] MEDS: ONDANSETRON HCL 4 MG/2 ML VIAL IVP PRN (14:20)
[2024-04-22] VITALS (13 sets, daily range): BP systolic 145–186; PULSE 61–75; RESP 18–20; TEMP 96.6–98.6; O2SAT 96–99
[2024-04-22 07:44] LABS: BASOPHILS # (AUTO) 0.1 K/uL (0.0-0.2); BASOPHILS % (AUTO) 0.5 % (0.0-2.0); EOSINOPHILS # (AUTO) 0.2 K/uL (0.0-0.4); EOSINOPHILS % (AUTO) 1.6 % (0.0-4.0); HEMATOCRIT 33.7 % (36-48); HEMOGLOBIN 11.4 g/dL (12.0-16.0); LYMPHOCYTES # (AUTO) 1.7 K/uL (1.0-5.5); LYMPHOCYTES % (AUTO) 15.5 % (20.5-51.5); MEAN CORPUSCULAR HEMOGLOBIN 30 pg (27-31); MEAN CORPUSCULAR HGB CONC 34 % (32-36); MEAN CORPUSCULAR VOLUME 88 fL (79.0-98.0); MONOCYTES # (AUTO) 1.1 K/uL (0.0-1.0); MONOCYTES % (AUTO) 9.7 % (1.7-9.3); NEUTROPHILS # (AUTO) 7.9 K/uL (1.8-7.7); NEUTROPHILS % (AUTO) 72.7 % (40.0-70.0); PLATELET COUNT (AUTO) 251 K/uL (130-430); RED BLOOD CELL COUNT(AUTO) 3.82 MIL/uL (4.2-6.2); RED CELL DISTRIBUTION WIDTH 15.5 % (9.0-15.0); WHITE BLOOD COUNT (AUTO) 10.8 K/uL (4.8-10.8)
[2024-04-22 07:47] LABS: ANION GAP 8 (5-15); CALCIUM 8.7 mg/dL (8.4-11.0); CARBON DIOXIDE 26 mmol/L (23-29); CHLORIDE 94 mmol/L (98-107); CREATININE 0.74 mg/dL (0.55-1.30); GLUCOSE 178 mg/dL (74-106); POTASSIUM 3.4 mmol/L (3.5-5.1); SODIUM SERUM 128 mmol/L (136-145); UREA NITROGEN, BLOOD 10 mg/dL (8-21)
[2024-04-22] MEDS: CARBIDOPA/LEVODOPA 25/100 MG TABLET PO SCH (08:35)
[2024-04-22] MEDS: BISACODYL 10 MG/SUPPOSITORY RC SCH (08:38)
[2024-04-22] MEDS: POTASSIUM CHLORIDE 20 MEQ/PKT PACKET PO ONE (12:14)
[2024-04-22] MEDS: SODIUM CHLORIDE 3% *HI-ALERT* 500 ML IV SCH (12:20)
[2024-04-22] MEDS: ACETAMINOPHEN 325 MG TABLET PO PRN (17:01)
[2024-04-23] VITALS (8 sets, daily range): BP systolic 124–161; PULSE 70–106; RESP 14–20; TEMP 97.4–101.3; O2SAT 92–98
[2024-04-23 08:02] LABS: BASOPHILS % (AUTO) 0.6 % (0.0-2.0); EOSINOPHILS # (AUTO) 0.1 K/uL (0.0-0.4); EOSINOPHILS % (AUTO) 1.6 % (0.0-4.0); HEMATOCRIT 31.3 % (36-48); HEMOGLOBIN 10.7 g/dL (12.0-16.0); LYMPHOCYTES # (AUTO) 1.7 K/uL (1.0-5.5); LYMPHOCYTES % (AUTO) 20.8 % (20.5-51.5); MEAN CORPUSCULAR HEMOGLOBIN 31 pg (27-31); MEAN CORPUSCULAR HGB CONC 34 % (32-36); MEAN CORPUSCULAR VOLUME 89 fL (79.0-98.0); MONOCYTES # (AUTO) 0.7 K/uL (0.0-1.0); MONOCYTES % (AUTO) 8.6 % (1.7-9.3); NEUTROPHILS # (AUTO) 5.7 K/uL (1.8-7.7); NEUTROPHILS % (AUTO) 68.4 % (40.0-70.0); PLATELET COUNT (AUTO) 227 K/uL (130-430); RED BLOOD CELL COUNT(AUTO) 3.52 MIL/uL (4.2-6.2); RED CELL DISTRIBUTION WIDTH 15.8 % (9.0-15.0); WHITE BLOOD COUNT (AUTO) 8.3 K/uL (4.8-10.8)
[2024-04-23 08:34] LABS: ANION GAP 9 (5-15); CALCIUM 8.5 mg/dL (8.4-11.0); CARBON DIOXIDE 24 mmol/L (23-29); CHLORIDE 97 mmol/L (98-107); CREATININE 0.79 mg/dL (0.55-1.30); GLUCOSE 172 mg/dL (74-106); PHOSPHORUS 3.4 mg/dL (2.7-4.5); SODIUM SERUM 130 mmol/L (136-145); UREA NITROGEN, BLOOD 10 mg/dL (8-21)
[2024-04-23] MEDS: cloNIDine HCL 0.3 MG/24 HR PATCH.TDWK TD SCH (09:26)
[2024-04-23] MEDS: CARBIDOPA/LEVODOPA 25/100 MG TABLET PO SCH (13:16)
[2024-04-24] VITALS (8 sets, daily range): BP systolic 140–168; PULSE 62–75; RESP 18–20; TEMP 97.2–98.8; O2SAT 95–97
[2024-04-24 08:02] LABS: BASOPHILS % (AUTO) 0.6 % (0.0-2.0); EOSINOPHILS # (AUTO) 0.2 K/uL (0.0-0.4); EOSINOPHILS % (AUTO) 3.1 % (0.0-4.0); HEMOGLOBIN 10.8 g/dL (12.0-16.0); LYMPHOCYTES % (AUTO) 26.3 % (20.5-51.5); MEAN CORPUSCULAR HEMOGLOBIN 30 pg (27-31); MEAN CORPUSCULAR HGB CONC 34 % (32-36); MEAN CORPUSCULAR VOLUME 90 fL (79.0-98.0); MONOCYTES # (AUTO) 0.8 K/uL (0.0-1.0); MONOCYTES % (AUTO) 10.8 % (1.7-9.3); NEUTROPHILS # (AUTO) 4.5 K/uL (1.8-7.7); NEUTROPHILS % (AUTO) 59.2 % (40.0-70.0); PLATELET COUNT (AUTO) 226 K/uL (130-430); RED BLOOD CELL COUNT(AUTO) 3.55 MIL/uL (4.2-6.2); RED CELL DISTRIBUTION WIDTH 15.7 % (9.0-15.0); WHITE BLOOD COUNT (AUTO) 7.6 K/uL (4.8-10.8)
[2024-04-24 08:48] LABS: ANION GAP 9 (5-15); CALCIUM 8.9 mg/dL (8.4-11.0); CARBON DIOXIDE 25 mmol/L (23-29); CHLORIDE 101 mmol/L (98-107); CREATININE 0.78 mg/dL (0.55-1.30); GLUCOSE 155 mg/dL (74-106); POTASSIUM 3.5 mmol/L (3.5-5.1); SODIUM SERUM 135 mmol/L (136-145); UREA NITROGEN, BLOOD 12 mg/dL (8-21)
[2024-04-25] VITALS: BP_SYST 136; PULSE 64; RESP 20; TEMP 98.3; O2SAT 97
== END 2024-04-25 00:20 | DRG 871 ==
LOC: SED 13:48 → STU 17:51
PROVIDERS: ADMIT Family Medicine; ATTEND Family Medicine
PROC: 0DB98ZX Excision of Duodenum, Via Natural or Artificial Opening Endoscopic, Diagnostic (ICD-10-PCS; 2024-04-14)
PROC: 0DB68ZX Excision of Stomach, Via Natural or Artificial Opening Endoscopic, Diagnostic (ICD-10-PCS; principal; 2024-04-14 14:15)
DX: A41.9 Sepsis, unspecified organism (principal); J18.9 Pneumonia, unspecified organism; K29.01 Acute gastritis with bleeding; N39.0 Urinary tract infection, site not specified; E87.1 Hypo-osmolality and hyponatremia; E11.9 Type 2 diabetes mellitus without complications; G20.A1 Parkinson's disease without dyskinesia, without mention of fluctuations; Z20.822 Contact with and (suspected) exposure to COVID-19; I10 Essential (primary) hypertension; E03.9 Hypothyroidism, unspecified; D64.9 Anemia, unspecified; Z79.899 Other long term (current) drug therapy; Z88.8 Allergy status to other drugs, medicaments and biological substances
CPT/HCPCS: 36415; 43239; 70450-TC; 71045; 80048; 80053; 80076; 81000; 81001; 81015; 82533; 82948; 83605; 83690; 83735; 83880; 84100; 84443; 85025; 86870; 86886; 86900; 86901; 87040; 87081; 87086; 87186; 88305; 88312; 88313; 94070; 94640; 94760; 96374; 97110-GP; 97530-GP; 99285; G0378; J0360; J0692; J1200; J1815; J2250; J2405; J2470; J2765; J3010; J3475; J3480; J3490; J7060; J7612; Q9964; Q9967